=== PATIENT | female | born 1950 | race Caucasian/White ===

== ENCOUNTER → 2016-07-22 | Outpatient (CLI) | payer OTHER ==
[2016-07-22 13:29] LABS: Basophils # (auto) 0.1 uL; Basophils % (auto) 0.7 % (0.0-2.0); Eosinophils # (auto) 0.2 uL; Eosinophils % (auto) 2.7 % (0.0-7.0); Hematocrit 42.6 % (36.0-46.0); Hemoglobin 13.6 g/dL (12.2-16.2); Lymphocytes # (auto) 1.7 uL; Lymphocytes % (auto) 21.9 % (10.0-50.0); Mean Corpuscular Hemoglobin 32.2 pg (28.0-32.0); Mean Corpuscular Volume 100.6 fL (80.0-100.0); Mean Platelet Volume 8.1 fL (7.4-10.4); Monocytes # (auto) 0.5 uL; Monocytes % (auto) 6.9 % (0.0-12.0); Neutrophils # (auto) 5.2 uL; Neutrophils % (auto) 67.8 % (37.0-80.0); Platelet Count (auto) 272 10^3/uL (140-450); White Blood Cell 7.7 10^3/uL (4.4-10.8)
[2016-07-22 13:36] LABS: Urine Bilirubin Negative (Negative); Urine Blood Negative /uL (Negative); Urine Color Yellow (Yellow); Urine Glucose Normal (Normal); Urine Ketone Negative (Negative); Urine Nitrite Negative (Negative); Urine RBC 1 /hpf (0 - 4); Urine Squamous Epithelial Cell FEW /hpf (<5); Urine Urobilinogen Normal (Negative)
[2016-07-22 13:42] LABS: Albumin 4.2 g/dL (3.4-5.0); BUN/Creatinine Ratio 12.5; Bilirubin, Total 0.5 mg/dL (0.2-1.0); Calcium 9.3 mg/dL (8.5-10.1); Potassium 4.5 mmol/L (3.5-5.1); Total Protein 8.1 g/dL (6.4-8.2)
== END | disposition home or self-care (01) ==
LOC: LAB 12:23
PROVIDERS: ATTEND Family Medicine
DX: M85.80 Other specified disorders of bone density and structure, unspecified site (principal); J44.9 Chronic obstructive pulmonary disease, unspecified; E03.9 Hypothyroidism, unspecified; F33.1 Major depressive disorder, recurrent, moderate; K21.9 Gastro-esophageal reflux disease without esophagitis
CPT/HCPCS: 36415; 80053; 80061; 81001; 82306; 82607; 83036; 84443; 85025

== ENCOUNTER → 2016-07-22 | Outpatient (CLI) | payer OTHER | END | disposition home or self-care (01) | LOC: RT 11:59 | PROVIDERS: ATTEND Family Medicine | DX: J44.9 Chronic obstructive pulmonary disease, unspecified (principal) | CPT/HCPCS: 36600; 82805 ==

== ENCOUNTER → 2016-12-21 | Outpatient (CLI) | payer OTHER ==
[2016-12-21 12:16] LABS: Basophils # (auto) 0 uL; Basophils % (auto) 0.7 % (0.0-2.0); Eosinophils # (auto) 0.1 uL; Hematocrit 37.6 % (36.0-46.0); Hemoglobin 12.6 g/dL (12.2-16.2); Lymphocytes # (auto) 1.1 uL; Lymphocytes % (auto) 26.1 % (10.0-50.0); Mean Corpuscular Hemoglobin 33.7 pg (28.0-32.0); Mean Corpuscular Hgb Conc. 33.4 g/dL (32.0-36.0); Mean Corpuscular Volume 100.7 fL (80.0-100.0); Mean Platelet Volume 8.2 fL (7.4-10.4); Monocytes # (auto) 0.4 uL; Monocytes % (auto) 8.4 % (0.0-12.0); Neutrophils # (auto) 2.7 uL; Neutrophils % (auto) 62.8 % (37.0-80.0); Platelet Count (auto) 288 10^3/uL (140-450); Red Cell Distribution Width 12.7 % (11.6-16.0); White Blood Cell 4.4 10^3/uL (4.4-10.8)
== END | disposition home or self-care (01) ==
LOC: LAB 11:05
PROVIDERS: ATTEND Family Medicine
DX: E03.9 Hypothyroidism, unspecified (principal); E78.9 Disorder of lipoprotein metabolism, unspecified
CPT/HCPCS: 36415; 82306; 82607; 84443; 85025

== ENCOUNTER → 2018-02-14 | Outpatient (CLI) | payer OTHER ==
[2018-02-14 09:32] LABS: Basophils # (auto) 0.1 uL; Eosinophils # (auto) 0.2 uL; Eosinophils % (auto) 3.7 % (0.0-7.0); Hematocrit 40.8 % (36.0-46.0); Hemoglobin 13.5 g/dL (12.2-16.2); Lymphocytes # (auto) 1.9 uL; Lymphocytes % (auto) 34.2 % (10.0-50.0); Mean Corpuscular Hemoglobin 33.3 pg (28.0-32.0); Mean Corpuscular Hgb Conc. 33.1 g/dL (32.0-36.0); Mean Corpuscular Volume 100.5 fL (80.0-100.0); Monocytes # (auto) 0.5 uL; Monocytes % (auto) 9.5 % (0.0-12.0); Neutrophils # (auto) 2.8 uL; Neutrophils % (auto) 51.6 % (37.0-80.0); Platelet Count (auto) 255 10^3/uL (140-450); Red Blood Cells 4.06 10^6/uL (4.0-5.20); Red Cell Distribution Width 12.5 % (11.8-14.3); White Blood Cell 5.4 10^3/uL (4.4-10.8)
[2018-02-14 09:35] LABS: Urine Bacteria FEW /hpf (None Seen); Urine Blood 1+ /uL (Negative); Urine Specific Gravity 1.011 (1.001-1.035); Urine WBC 1 /hpf (0 - 5)
[2018-02-14 10:30] LABS: BUN/Creatinine Ratio 9.2; Bilirubin, Total 0.3 mg/dL (0.2-1.0); Calcium 8.8 mg/dL (8.5-10.1); Potassium 4.2 mmol/L (3.5-5.1); Total Protein 7.4 g/dL (6.4-8.2)
== END | disposition home or self-care (01) ==
LOC: LAB 09:02
PROVIDERS: ATTEND Family Medicine
DX: E03.9 Hypothyroidism, unspecified (principal); K21.9 Gastro-esophageal reflux disease without esophagitis; E55.9 Vitamin D deficiency, unspecified; E78.4 Other hyperlipidemia; J44.9 Chronic obstructive pulmonary disease, unspecified; F33.1 Major depressive disorder, recurrent, moderate
CPT/HCPCS: 36415; 80053; 80061; 81001; 82306; 84443; 85025

== ENCOUNTER → 2018-11-01 | Outpatient (CLI) | payer OTHER ==
[2018-11-01 11:26] LABS: Urine Bacteria NONE SEEN /hpf (None Seen); Urine Blood Negative /uL (Negative); Urine Specific Gravity 1.004 (1.001-1.035); Urine WBC 1 /hpf (0 - 5)
[2018-11-01 11:28] LABS: Basophils # (auto) 0 uL; Basophils % (auto) 0.5 % (0.0-2.0); Eosinophils # (auto) 0.2 uL; Eosinophils % (auto) 3.4 % (0.0-7.0); Hematocrit 39.2 % (36.0-46.0); Hemoglobin 12.8 g/dL (12.2-16.2); Lymphocytes # (auto) 1.5 uL; Lymphocytes % (auto) 23.3 % (10.0-50.0); Mean Corpuscular Hemoglobin 33.1 pg (28.0-32.0); Mean Corpuscular Hgb Conc. 32.7 g/dL (32.0-36.0); Mean Corpuscular Volume 101.1 fL (80.0-100.0); Monocytes # (auto) 0.6 uL; Monocytes % (auto) 9.2 % (0.0-12.0); Neutrophils % (auto) 63.6 % (37.0-80.0); Nucleated Red Blood Cells % 0.1 %; Platelet Count (auto) 258 10^3/uL (140-450); Red Blood Cells 3.88 10^6/uL (4.0-5.20); Red Cell Distribution Width 12.9 % (11.8-14.3); White Blood Cell 6.2 10^3/uL (4.4-10.8)
[2018-11-01 12:17] LABS: Albumin 3.8 g/dL (3.4-5.0); BUN/Creatinine Ratio 7.6; Calcium 8.7 mg/dL (8.5-10.1); Potassium 3.8 mmol/L (3.5-5.1)
[2018-11-01 12:21] LABS: Bilirubin, Total 0.4 mg/dL (0.2-1.0); Total Protein 6.5 g/dL (6.4-8.2)
== END | disposition home or self-care (01) ==
LOC: LAB 11:06
PROVIDERS: ATTEND Family Medicine
DX: K21.9 Gastro-esophageal reflux disease without esophagitis (principal); E78.00 Pure hypercholesterolemia, unspecified; E03.9 Hypothyroidism, unspecified; E55.9 Vitamin D deficiency, unspecified; J44.9 Chronic obstructive pulmonary disease, unspecified; R79.89 Other specified abnormal findings of blood chemistry
CPT/HCPCS: 36415; 80053; 80061; 81001; 82306; 84443; 85025

== ENCOUNTER → 2019-01-25 | Outpatient (CLI) | payer OTHER | END | disposition home or self-care (01) | LOC: LAB 11:46 | PROVIDERS: ATTEND Family Medicine | DX: R09.02 Hypoxemia (principal) | CPT/HCPCS: 36415; 82565; 84520 ==

== ENCOUNTER → 2019-02-02 | Outpatient (CLI) | payer OTHER ==
[~2019-02-02] MED LIST: ALBUTEROL SULF 2.5 MG/0.5ML(0.5%) NEB SOLN ONE
== END | disposition home or self-care (01) ==
LOC: RT 09:07 → EDSTATUS 13:34
PROVIDERS: ATTEND Family Medicine
DX: R09.02 Hypoxemia (principal)
CPT/HCPCS: 36600; 82805; 94060; 94618; J7611

== ENCOUNTER → 2020-08-23 | Outpatient (CLI) | payer OTHER ==
[2020-08-23 10:52] LABS: Basophils # (auto) 0 10 ^3/uL (0-0.2); Basophils % (auto) 0.6 % (0.0-2.0); Eosinophils # (auto) 0.3 10 ^3/uL (0-0.8); Eosinophils % (auto) 6.3 % (0.0-7.0); Hematocrit 36.4 % (36.0-46.0); Hemoglobin 12.1 g/dL (12.2-16.2); Lymphocytes # (auto) 1.3 10 ^3/uL (0.4-5.4); Lymphocytes % (auto) 23.4 % (10.0-50.0); Mean Corpuscular Hemoglobin 33.1 pg (28.0-32.0); Mean Corpuscular Hgb Conc. 33.4 g/dL (32.0-36.0); Mean Corpuscular Volume 99.3 fL (80.0-100.0); Monocytes # (auto) 0.6 10 ^3/uL (0-1.3); Monocytes % (auto) 10.3 % (0.0-12.0); Neutrophils # (auto) 3.3 10 ^3/uL (1.6-8.6); Neutrophils % (auto) 59.4 % (37.0-80.0); Platelet Count (auto) 259 10^3/uL (140-450); Red Blood Cells 3.66 10^6/uL (4.0-5.20); Red Cell Distribution Width 12.8 % (11.8-14.3); White Blood Cell 5.5 10^3/uL (4.4-10.8)
[2020-08-23 11:04] LABS: Albumin 3.6 g/dL (3.4-5.0); Calcium 8.4 mg/dL (8.5-10.1); Potassium 3.9 mmol/L (3.5-5.1)
[2020-08-23 11:09] LABS: BUN/Creatinine Ratio 12.7; Bilirubin, Total 0.3 mg/dL (0.2-1.0); Total Protein 7.2 g/dL (6.4-8.2)
== END | disposition home or self-care (01) ==
LOC: LAB 10:23
PROVIDERS: ATTEND Family Medicine
DX: I10 Essential (primary) hypertension (principal); E78.49 Other hyperlipidemia; J44.9 Chronic obstructive pulmonary disease, unspecified; E03.9 Hypothyroidism, unspecified
CPT/HCPCS: 36415; 80053; 80061; 84443; 85025

== ENCOUNTER → 2020-08-30 | Outpatient (CLI) | payer OTHER ==
[2020-08-30 11:04] LABS: Urine Bacteria NONE SEEN /hpf (None Seen); Urine Blood TRACE /uL (Negative); Urine Mucus FEW (None Seen); Urine Specific Gravity 1.013 (1.001-1.035); Urine WBC 142 /hpf (0 - 5)
== END | disposition home or self-care (01) ==
LOC: LAB 10:54
PROVIDERS: ATTEND Family Medicine
DX: E78.49 Other hyperlipidemia (principal); I10 Essential (primary) hypertension; J44.9 Chronic obstructive pulmonary disease, unspecified; E03.9 Hypothyroidism, unspecified
CPT/HCPCS: 81001

== ENCOUNTER 2020-10-29 04:08 | Inpatient (IN) | payer OTHER ==
[~2020-10-29] VITALS: Ht 172.7 cm; Wt 53.2 kg
[2020-10-29] VITALS (7 sets, daily range): BP systolic 92–113; BP diastolic 49–76
[2020-10-29] MEDS ORDERED: SODIUM CHLORIDE 0.9% 1,000 ML IV ONE ×2 (04:45→09:45)
[2020-10-29] MEDS ORDERED: FAMOTIDINE (10MG/ML) 2ML VL IV ONE (06:00)
[2020-10-29] MEDS ORDERED: SUCRALFATE 1 GM/10 ML ORAL SUSP PO ONE (06:00)
[2020-10-29] MEDS ORDERED: LIDOCAINE VISCOUS 2% 15ML UD PO ONE (06:00)
[2020-10-29] MEDS ORDERED: ALBUTEROL SULF 2.5 MG/0.5ML(0.5%) NEB SOLN NEB ONE (08:00)
[2020-10-29 08:23] LABS: Basophils # (auto) 0 10 ^3/uL (0-0.2); Basophils % (auto) 0.6 % (0.0-2.0); Eosinophils # (auto) 0.2 10 ^3/uL (0-0.8); Hemoglobin 7.3 g/dL (12.2-16.2); Platelet Count (auto) 156 10^3/uL (140-450); Red Cell Distribution Width 12.7 % (11.8-14.3); White Blood Cell 5.4 10^3/uL (4.4-10.8)
[2020-10-29 08:25] LABS: Eosinophils % (auto) 3.5 % (0.0-7.0); Hematocrit 21.2 % (36.0-46.0); Lymphocytes # (auto) 0.9 10 ^3/uL (0.4-5.4); Mean Corpuscular Hemoglobin 34.9 pg (28.0-32.0); Mean Corpuscular Hgb Conc. 34.6 g/dL (32.0-36.0); Mean Corpuscular Volume 100.9 fL (80.0-100.0); Monocytes # (auto) 0.5 10 ^3/uL (0-1.3); Monocytes % (auto) 10.1 % (0.0-12.0); Neutrophils # (auto) 3.7 10 ^3/uL (1.6-8.6); Neutrophils % (auto) 68.8 % (37.0-80.0)
[2020-10-29 08:43] LABS: Albumin 2.7 g/dL (3.4-5.0); Calcium 7.2 mg/dL (8.5-10.1); Magnesium 2.4 mg/dL (1.6-2.6); Potassium 4.7 mmol/L (3.5-5.1)
[2020-10-29 08:47] LABS: Bilirubin, Total 0.4 mg/dL (0.2-1.0); Total Protein 4.8 g/dL (6.4-8.2)
[2020-10-29 09:14] LABS: Urine WBC None Seen /hpf (0 - 5)
[2020-10-29] MEDS ORDERED: MORPHINE SULF INJ 2 MG/ML SYRINGE 1ML IV PRN (09:45)
[2020-10-29] MEDS ORDERED: NITROGLYCERIN 0.4 MG SL TAB SL PRN (09:45)
[2020-10-29] MEDS ORDERED: ONDANSETRON HCL 4 MG/2 ML VIAL IV PRN (09:45)
[2020-10-29 09:49] LABS: Urine Bacteria NONE SEEN /hpf (None Seen); Urine Blood 2+ /uL (Negative); Urine Specific Gravity 1.018 (1.001-1.035)
[2020-10-29] MEDS ORDERED: IOHEXOL 300 MG/ML 100ML BOTTLE IJ ONE (09:50)
[2020-10-29] MEDS: SODIUM CHLORIDE 0.9% 1,000 ML IV SCH ×2 (09:59→19:45)
[2020-10-29] MEDS ORDERED: PANTOPRAZOLE 40 MG/10 ML VIAL INJ IV SCH (10:00)
[2020-10-29] MEDS: NICOTINE 21MG/24 HR TOPICAL PATCH TD SCH (10:21)
[2020-10-29] MEDS: FOLIC ACID 1 MG, MULTIPLE VITAMIN 10 ML, MAGNESIUM SULF SDV 50% 8 MEQ, THIAMINE INJ 100... INJ SCH ×5 (12:56)
[2020-10-29] MEDS: OCTREOTIDE ACETATE 500 MCG in SODIUM CHL 0.9% 99 ML IV SCH ×2 (13:11→22:00)
[2020-10-29] MEDS: PANTOPRAZOLE 40mg/50ML NS AE 50 ML IV SCH ×3 (13:39→22:00)
[2020-10-29 20:08] LABS: Basophils # (auto) 0.1 10 ^3/uL (0-0.2); Basophils % (auto) 0.7 % (0.0-2.0); Eosinophils # (auto) 0.2 10 ^3/uL (0-0.8); Hematocrit 20.2 % (36.0-46.0); Lymphocytes # (auto) 1.2 10 ^3/uL (0.4-5.4); Mean Corpuscular Hgb Conc. 34.8 g/dL (32.0-36.0); Monocytes # (auto) 0.7 10 ^3/uL (0-1.3); Neutrophils # (auto) 5.6 10 ^3/uL (1.6-8.6); White Blood Cell 7.7 10^3/uL (4.4-10.8)
[2020-10-29 20:10] LABS: Eosinophils % (auto) 2.2 % (0.0-7.0); Lymphocytes % (auto) 15.2 % (10.0-50.0); Mean Corpuscular Hemoglobin 33.4 pg (28.0-32.0); Mean Corpuscular Volume 96.2 fL (80.0-100.0); Monocytes % (auto) 8.8 % (0.0-12.0); Neutrophils % (auto) 73.1 % (37.0-80.0); Platelet Count (auto) 131 10^3/uL (140-450); Red Cell Distribution Width 15.4 % (11.8-14.3)
[2020-10-30] VITALS (8 sets, daily range): BP systolic 114–148; BP diastolic 55–81
[2020-10-30] MEDS: PANTOPRAZOLE 40mg/50ML NS AE 50 ML IV SCH ×5 (03:02→23:00)
[2020-10-30] MEDS: IPRATROPIUM BROM 0.5 MG/2.5ML INH SOL NEB PRN ×2 (05:34→18:30)
[2020-10-30] MEDS: ALBUTEROL SULF 2.5 MG/0.5ML(0.5%) NEB SOLN NEB PRN ×2 (05:34→18:30)
[2020-10-30] MEDS: SODIUM CHLORIDE 0.9% 1,000 ML IV SCH ×3 (05:45→23:43)
[2020-10-30] MEDS ORDERED: SODIUM CHLORIDE LOCK 10 ML ONE (08:07)
[2020-10-30] MEDS ORDERED: diphenhdrAMINE HCL 50 MG/1 ML VL ONE (08:07)
[2020-10-30] MEDS ORDERED: LIDOCAINE VISCOUS 2% 15ML UD ONE (08:08)
[2020-10-30] MEDS: NICOTINE 21MG/24 HR TOPICAL PATCH TD SCH (09:49)
[2020-10-30] MEDS: OCTREOTIDE ACETATE 500 MCG in SODIUM CHL 0.9% 99 ML IV SCH ×2 (10:29→20:00)
[2020-10-30 10:58] LABS: Basophils # (auto) 0.1 10 ^3/uL (0-0.2); Lymphocytes # (auto) 0.8 10 ^3/uL (0.4-5.4); Mean Corpuscular Hemoglobin 31.8 pg (28.0-32.0); Monocytes # (auto) 0.5 10 ^3/uL (0-1.3); Monocytes % (auto) 8.2 % (0.0-12.0); Neutrophils % (auto) 75.1 % (37.0-80.0); Nucleated Red Blood Cells % 0.1 %
[2020-10-30 11:00] LABS: Basophils % (auto) 0.8 % (0.0-2.0); Eosinophils # (auto) 0.3 10 ^3/uL (0-0.8); Eosinophils % (auto) 3.8 % (0.0-7.0); Hemoglobin 8.2 g/dL (12.2-16.2); Lymphocytes % (auto) 12.1 % (10.0-50.0); Mean Corpuscular Hgb Conc. 34.2 g/dL (32.0-36.0); Platelet Count (auto) 127 10^3/uL (140-450); Red Blood Cells 2.58 10^6/uL (4.0-5.20); Red Cell Distribution Width 17.4 % (11.8-14.3); White Blood Cell 6.7 10^3/uL (4.4-10.8)
[2020-10-30 11:15] LABS: Albumin 2.9 g/dL (3.4-5.0); Calcium 7.4 mg/dL (8.5-10.1); Potassium 3.8 mmol/L (3.5-5.1)
[2020-10-30 11:18] LABS: BUN/Creatinine Ratio 48.6; Bilirubin, Total 0.6 mg/dL (0.2-1.0); Total Protein 5.2 g/dL (6.4-8.2)
[2020-10-30 11:24] LABS: Partial Thromboplastin Time 22.8 sec (23.0-31.2)
[2020-10-30] MEDS ORDERED: methylPREDNISolone SOD SUCC 40 MG/ML VL IV SCH (11:30)
[2020-10-30 11:53] LABS: Amylase 27 U/L (25-115); Lipase 69 U/L (73-393)
[2020-10-30] MEDS: fentaNYL CITRATE 100 MCG/2 ML VL ONE ×3 (12:27→12:33)
[2020-10-30] MEDS: MIDAZOLAM HCL 5 MG/ML-1ML VIAL ONE ×2 (12:27→12:30)
[2020-10-30] MEDS: FOLIC ACID 1 MG, MULTIPLE VITAMIN 10 ML, MAGNESIUM SULF SDV 50% 8 MEQ, THIAMINE INJ 100... INJ SCH ×5 (14:02)
[2020-10-30 15:28] LABS: Folate (Folic Acid) > 24.00 ng/mL (5.38-24)
[2020-10-30] MEDS: SUCRALFATE 1 GM/10 ML ORAL SUSP PO SCH ×2 (17:20→21:58)
[2020-10-30 18:30] LABS: Hematocrit 23.4 % (36.0-46.0); Hemoglobin 8.1 g/dL (12.2-16.2)
[2020-10-30] MEDS: BUDESONIDE (INHALATION) 0.5 MG/2 ML NEB NEB SCH (18:30)
[2020-10-30] MEDS: LORazepam 2MG/ML-1ML VIAL IV PRN (21:48)
[2020-10-30] MEDS: PANTOPRAZOLE 40 MG/10 ML VIAL INJ IV SCH (21:59)
[2020-10-31] MEDS: OCTREOTIDE ACETATE 500 MCG in SODIUM CHL 0.9% 99 ML IV SCH (04:00)
[2020-10-31] MEDS: PANTOPRAZOLE 40mg/50ML NS AE 50 ML IV SCH ×2 (04:38→09:14)
[2020-10-31 04:39] VITALS: BP 129/67
[2020-10-31 06:13] LABS: Basophils # (auto) 0 10 ^3/uL (0-0.2); Basophils % (auto) 0.3 % (0.0-2.0); Eosinophils # (auto) 0.1 10 ^3/uL (0-0.8); Eosinophils % (auto) 0.8 % (0.0-7.0); Hematocrit 21.7 % (36.0-46.0); Hemoglobin 7.4 g/dL (12.2-16.2); Lymphocytes % (auto) 12.5 % (10.0-50.0); Mean Corpuscular Hemoglobin 32.1 pg (28.0-32.0); Mean Corpuscular Hgb Conc. 34.1 g/dL (32.0-36.0); Mean Corpuscular Volume 94.3 fL (80.0-100.0); Monocytes # (auto) 0.9 10 ^3/uL (0-1.3); Monocytes % (auto) 11.2 % (0.0-12.0); Neutrophils # (auto) 6.3 10 ^3/uL (1.6-8.6); Neutrophils % (auto) 75.2 % (37.0-80.0); Platelet Count (auto) 125 10^3/uL (140-450); Red Cell Distribution Width 17.6 % (11.8-14.3); White Blood Cell 8.4 10^3/uL (4.4-10.8)
[2020-10-31 06:33] LABS: BUN/Creatinine Ratio 18.4; Calcium 7.2 mg/dL (8.5-10.1); Magnesium 2.5 mg/dL (1.6-2.6); Phosphorus 2.2 mg/dL (2.5-4.90); Potassium 3.7 mmol/L (3.5-5.1)
[2020-10-31] MEDS: SUCRALFATE 1 GM/10 ML ORAL SUSP PO SCH ×4 (06:47→21:34)
[2020-10-31 09:00] VITALS: BP 117/55
[2020-10-31] MEDS: PANTOPRAZOLE 40 MG/10 ML VIAL INJ IV SCH ×2 (09:14→21:34)
[2020-10-31] MEDS: NICOTINE 21MG/24 HR TOPICAL PATCH TD SCH (09:14)
[2020-10-31] MEDS ORDERED: predniSONE 20 MG TAB PO SCH ×2 (10:00)
[2020-10-31] MEDS ORDERED: POTASSIUM PHOSPHATE 22 MEQ in SODIUM CHL 0.9% 100 ML IV ONE (11:45)
[2020-10-31] MEDS: FOLIC ACID 1 MG, MULTIPLE VITAMIN 10 ML, MAGNESIUM SULF SDV 50% 8 MEQ, THIAMINE INJ 100... INJ SCH ×5 (12:22)
[2020-10-31] MEDS: SODIUM CHLORIDE 0.9% 1,000 ML IV SCH ×2 (12:22→20:34)
[2020-10-31 13:00] VITALS: BP 110/64
[2020-10-31 17:00] VITALS: BP 107/60
[2020-10-31] MEDS: BUDESONIDE (INHALATION) 0.5 MG/2 ML NEB NEB SCH (17:55)
[2020-10-31] MEDS ORDERED: PRE1T PO (18:36)
[2020-10-31] MEDS ORDERED: PAR20T PO (18:36)
[2020-10-31] MEDS ORDERED: HYDR-4072 PO (18:36)
[2020-10-31] MEDS ORDERED: ALBU108A14 IN (18:36)
[2020-10-31] MEDS ORDERED: ATEN-60 PO (18:36)
[2020-10-31] MEDS ORDERED: SIMV-8 PO (18:36)
[2020-10-31] MEDS: MORPHINE SULF INJ 2 MG/ML SYRINGE 1ML IV PRN (21:00)
[2020-10-31] MEDS: PANTOPRAZOLE 40 MG TAB PO SCH (21:34)
[2020-10-31 22:00] VITALS: BP 125/69
[2020-11-01] VITALS (7 sets, daily range): BP systolic 134–153; BP diastolic 58–87
[2020-11-01] MEDS: SUCRALFATE 1 GM/10 ML ORAL SUSP PO SCH ×4 (06:49→22:08)
[2020-11-01 06:59] LABS: Hematocrit 19.6 % (36.0-46.0)
[2020-11-01 07:11] LABS: Hemoglobin 6.7 g/dL (12.2-16.2)
[2020-11-01] MEDS: SODIUM CHLORIDE 0.9% 1,000 ML IV SCH ×2 (07:58→16:24)
[2020-11-01] MEDS: ALBUTEROL SULF 2.5 MG/0.5ML(0.5%) NEB SOLN NEB PRN (10:26)
[2020-11-01] MEDS: BUDESONIDE (INHALATION) 0.5 MG/2 ML NEB NEB SCH ×2 (10:27→21:47)
[2020-11-01] MEDS: IPRATROPIUM BROM 0.5 MG/2.5ML INH SOL NEB PRN (10:27)
[2020-11-01] MEDS: PANTOPRAZOLE 40 MG TAB PO SCH ×2 (10:38→22:08)
[2020-11-01] MEDS: PANTOPRAZOLE 40 MG/10 ML VIAL INJ IV SCH ×2 (10:39→22:08)
[2020-11-01] MEDS: NICOTINE 21MG/24 HR TOPICAL PATCH TD SCH (10:40)
[2020-11-01] MEDS: ACETAMINOPHEN 325 MG TAB PO PRN (15:12)
[2020-11-01] MEDS: FOLIC ACID 1 MG, MULTIPLE VITAMIN 10 ML, MAGNESIUM SULF SDV 50% 8 MEQ, THIAMINE INJ 100... INJ SCH ×5 (20:00)
[2020-11-01] MEDS: MORPHINE SULF INJ 2 MG/ML SYRINGE 1ML IV PRN (22:09)
[2020-11-01 23:31] LABS: Hematocrit 28.9 % (36.0-46.0); Hemoglobin 10.1 g/dL (12.2-16.2)
[2020-11-02 04:41] VITALS: BP 123/65
[2020-11-02] MEDS: BUDESONIDE (INHALATION) 0.5 MG/2 ML NEB NEB SCH ×2 (05:59→19:32)
[2020-11-02] MEDS: ALBUTEROL SULF 2.5 MG/0.5ML(0.5%) NEB SOLN NEB PRN ×2 (05:59→19:32)
[2020-11-02] MEDS: IPRATROPIUM BROM 0.5 MG/2.5ML INH SOL NEB PRN ×2 (05:59→19:32)
[2020-11-02 06:15] LABS: Basophils # (auto) 0 10 ^3/uL (0-0.2); Basophils % (auto) 0.4 % (0.0-2.0); Eosinophils # (auto) 0.5 10 ^3/uL (0-0.8); Eosinophils % (auto) 7.1 % (0.0-7.0); Lymphocytes % (auto) 15.5 % (10.0-50.0); Mean Corpuscular Hemoglobin 31.7 pg (28.0-32.0); Mean Corpuscular Hgb Conc. 34.5 g/dL (32.0-36.0); Mean Corpuscular Volume 91.9 fL (80.0-100.0); Monocytes # (auto) 0.8 10 ^3/uL (0-1.3); Monocytes % (auto) 12.4 % (0.0-12.0); Neutrophils # (auto) 4.4 10 ^3/uL (1.6-8.6); Neutrophils % (auto) 64.6 % (37.0-80.0); Platelet Count (auto) 150 10^3/uL (140-450); Red Blood Cells 3.15 10^6/uL (4.0-5.20); Red Cell Distribution Width 17.6 % (11.8-14.3); White Blood Cell 6.7 10^3/uL (4.4-10.8)
[2020-11-02] MEDS: SUCRALFATE 1 GM/10 ML ORAL SUSP PO SCH ×4 (06:31→22:00)
[2020-11-02 06:37] LABS: BUN/Creatinine Ratio 4.5; Calcium 7.4 mg/dL (8.5-10.1)
[2020-11-02 08:00] VITALS: BP 134/68
[2020-11-02 09:00] VITALS: BP 134/68
[2020-11-02] MEDS: PANTOPRAZOLE 40 MG TAB PO SCH (10:00)
[2020-11-02] MEDS: PANTOPRAZOLE 40 MG/10 ML VIAL INJ IV SCH ×2 (10:01→22:00)
[2020-11-02] MEDS: NICOTINE 21MG/24 HR TOPICAL PATCH TD SCH (10:02)
[2020-11-02 13:00] VITALS: BP 137/71
[2020-11-02] MEDS ORDERED: POTASSIUM CHL 20 Meq TABLET PO ONE (13:00)
[2020-11-02] MEDS: FOLIC ACID 1 MG, MULTIPLE VITAMIN 10 ML, MAGNESIUM SULF SDV 50% 8 MEQ, THIAMINE INJ 100... INJ SCH ×5 (13:03)
[2020-11-02] MEDS: MORPHINE SULF INJ 2 MG/ML SYRINGE 1ML IV PRN ×2 (15:58→20:30)
[2020-11-02 17:00] VITALS: BP 131/67
[2020-11-02] MEDS: ACETAMINOPHEN 325 MG TAB PO PRN (18:54)
[2020-11-02 22:28] VITALS: BP 130/82
[2020-11-02] MEDS: LORazepam 2MG/ML-1ML VIAL IV PRN (23:08)
[2020-11-03 05:18] VITALS: BP 128/72
[2020-11-03 06:53] LABS: Basophils # (auto) 0 10 ^3/uL (0-0.2); Basophils % (auto) 0.5 % (0.0-2.0); Eosinophils # (auto) 0.4 10 ^3/uL (0-0.8); Hematocrit 29.5 % (36.0-46.0); Hemoglobin 10.1 g/dL (12.2-16.2); Lymphocytes # (auto) 0.7 10 ^3/uL (0.4-5.4); Lymphocytes % (auto) 14.6 % (10.0-50.0); Mean Corpuscular Hemoglobin 31.7 pg (28.0-32.0); Mean Corpuscular Hgb Conc. 34.1 g/dL (32.0-36.0); Monocytes # (auto) 0.8 10 ^3/uL (0-1.3); Monocytes % (auto) 16.4 % (0.0-12.0); Neutrophils # (auto) 3.1 10 ^3/uL (1.6-8.6); Neutrophils % (auto) 61.5 % (37.0-80.0); Platelet Count (auto) 174 10^3/uL (140-450); Red Blood Cells 3.17 10^6/uL (4.0-5.20); White Blood Cell 5.1 10^3/uL (4.4-10.8)
[2020-11-03] MEDS: SUCRALFATE 1 GM/10 ML ORAL SUSP PO SCH ×2 (07:03→11:47)
[2020-11-03 07:04] LABS: Calcium 7.7 mg/dL (8.5-10.1); Magnesium 2.4 mg/dL (1.6-2.6); Potassium 3.7 mmol/L (3.5-5.1)
[2020-11-03 07:06] LABS: BUN/Creatinine Ratio 7.5
[2020-11-03 07:58] VITALS: BP 150/81
[2020-11-03 08:00] VITALS: BP 150/81
[2020-11-03] MEDS: PANTOPRAZOLE 40 MG/10 ML VIAL INJ IV SCH (09:44)
[2020-11-03] MEDS: NICOTINE 21MG/24 HR TOPICAL PATCH TD SCH (09:45)
[2020-11-03] MEDS: ACETAMINOPHEN 325 MG TAB PO PRN (09:45)
[2020-11-03] MEDS: BUDESONIDE (INHALATION) 0.5 MG/2 ML NEB NEB SCH (09:59)
[2020-11-03 12:00] VITALS: BP 140/74
[2020-11-03] MEDS: FOLIC ACID 1 MG, MULTIPLE VITAMIN 10 ML, MAGNESIUM SULF SDV 50% 8 MEQ, THIAMINE INJ 100... INJ SCH ×5 (12:29)
[2020-11-03 12:33] VITALS: BP 140/74
== END 2020-11-03 15:05 | disposition home or self-care (01) | DRG 380 ==
LOC: EDBD 04:08 → ER 04:12 → DOU IN ADS 09:40 → TELE-CENTR 16:21
PROVIDERS: ADMIT Nurse Practitioner Acute Care; ATTEND Internal Medicine
PROC: 30233N1 Transfusion of Nonautologous Red Blood Cells into Peripheral Vein, Percutaneous Approach (ICD-10-PCS; 2020-10-29)
PROC: 0DB68ZX Excision of Stomach, Via Natural or Artificial Opening Endoscopic, Diagnostic (ICD-10-PCS; 2020-10-30)
PROC: 0DB98ZX Excision of Duodenum, Via Natural or Artificial Opening Endoscopic, Diagnostic (ICD-10-PCS; principal; 2020-10-30 12:27)
DX: K22.11 Ulcer of esophagus with bleeding (principal); R57.8 Other shock; J96.21 Acute and chronic respiratory failure with hypoxia; K85.90 Acute pancreatitis without necrosis or infection, unspecified; Z68.1 Body mass index [BMI] 19.9 or less, adult; D62 Acute posthemorrhagic anemia; E44.0 Moderate protein-calorie malnutrition; K25.4 Chronic or unspecified gastric ulcer with hemorrhage; K29.91 Gastroduodenitis, unspecified, with bleeding; I10 Essential (primary) hypertension; D53.9 Nutritional anemia, unspecified; K83.8 Other specified diseases of biliary tract; F17.290 Nicotine dependence, other tobacco product, uncomplicated; K44.9 Diaphragmatic hernia without obstruction or gangrene; J43.9 Emphysema, unspecified; S50.01XA Contusion of right elbow, initial encounter; Z20.822 Contact with and (suspected) exposure to COVID-19; X58.XXXA Exposure to other specified factors, initial encounter; Y93.89 Activity, other specified; Z82.49 Family history of ischemic heart disease and other diseases of the circulatory system; Y92.89 Other specified places as the place of occurrence of the external cause; Z98.51 Tubal ligation status; Y99.8 Other external cause status
CPT/HCPCS: 36415; 71045; 71250; 73200; 74177; 78278; 80048; 80053; 81001; 82150; 82607; 82746; 83690; 83735; 84100; 85014; 85018; 85025; 85610; 85730; 86850; 86900; 86901; 86920; 87426; 93005; 94640; 96361; 96374; A9560; C9113; G0378; J1642; J2250; J3490

== ENCOUNTER → 2021-01-07 | Outpatient (CLI) | payer OTHER ==
[~2021-01-07] MED LIST changes: +ALBU108A14 IN; -ALBUTEROL SULF 2.5 MG/0.5ML(0.5%) NEB SOLN ONE; +ATEN-60 PO; +HYDR-4072 PO; +PAR20T PO; +PRE1T PO; +SIMV-8 PO
[2021-01-07 15:12] LABS: Basophils # (auto) 0 10 ^3/uL (0-0.2); Basophils % (auto) 0.6 % (0.0-2.0); Eosinophils # (auto) 0.2 10 ^3/uL (0-0.8); Eosinophils % (auto) 5.2 % (0.0-7.0); Hematocrit 34.8 % (36.0-46.0); Hemoglobin 12.1 g/dL (12.2-16.2); Lymphocytes # (auto) 1.2 10 ^3/uL (0.4-5.4); Lymphocytes % (auto) 28.6 % (10.0-50.0); Mean Corpuscular Hemoglobin 32.3 pg (28.0-32.0); Mean Corpuscular Hgb Conc. 34.7 g/dL (32.0-36.0); Mean Corpuscular Volume 93.3 fL (80.0-100.0); Monocytes # (auto) 0.4 10 ^3/uL (0-1.3); Monocytes % (auto) 10.9 % (0.0-12.0); Neutrophils # (auto) 2.2 10 ^3/uL (1.6-8.6); Neutrophils % (auto) 54.7 % (37.0-80.0); Platelet Count (auto) 164 10^3/uL (140-450); Red Blood Cells 3.73 10^6/uL (4.0-5.20); Red Cell Distribution Width 14.2 % (11.8-14.3); White Blood Cell 4.1 10^3/uL (4.4-10.8)
== END | disposition home or self-care (01) ==
LOC: LAB 14:53
PROVIDERS: ATTEND Family Medicine
DX: D50.0 Iron deficiency anemia secondary to blood loss (chronic) (principal); K29.81 Duodenitis with bleeding
CPT/HCPCS: 36415; 85025; 85049

== ENCOUNTER → 2021-01-16 | Outpatient (CLI) | payer OTHER | END | disposition home or self-care (01) | LOC: LAB 09:43 | PROVIDERS: ATTEND Internal Medicine Pulmonary Disease | DX: Z01.812 Encounter for preprocedural laboratory examination (principal); Z20.822 Contact with and (suspected) exposure to COVID-19 | CPT/HCPCS: 36415; 87426 ==

== ENCOUNTER → 2021-01-17 | Outpatient (CLI) | payer OTHER ==
[~2021-01-17] MED LIST changes: +ASCO500T11 GT; +BUDE2SUS3 IN; +CHOL20007 PO; +FLUT500M2 IN; +IPRIH IN; +LEVO75TA6 PO; +MAGN400T40 PO; +PANT1INJ3 PO; +TIOTCAP IN
== END | disposition home or self-care (01) ==
LOC: PF 08:48
PROVIDERS: ATTEND Internal Medicine Pulmonary Disease
DX: J98.8 Other specified respiratory disorders (principal); J44.9 Chronic obstructive pulmonary disease, unspecified; J98.4 Other disorders of lung
CPT/HCPCS: 94060; 94618; 94727; 94729

== ENCOUNTER 2021-01-24 12:57 | Day surgery (SDC) | payer OTHER ==
[2021-01-21 10:24] LABS: Urine WBC None Seen /hpf (0 - 5)
[2021-01-21 10:31] LABS: Basophils # (auto) 0.1 10 ^3/uL (0-0.2); Basophils % (auto) 1.5 % (0.0-2.0); Eosinophils # (auto) 0.2 10 ^3/uL (0-0.8); Eosinophils % (auto) 4.7 % (0.0-7.0); Hematocrit 38.1 % (36.0-46.0); Hemoglobin 12.4 g/dL (12.2-16.2); Lymphocytes # (auto) 1.2 10 ^3/uL (0.4-5.4); Lymphocytes % (auto) 24.3 % (10.0-50.0); Mean Corpuscular Hemoglobin 30.8 pg (28.0-32.0); Mean Corpuscular Hgb Conc. 32.6 g/dL (32.0-36.0); Mean Corpuscular Volume 94.6 fL (80.0-100.0); Monocytes # (auto) 0.5 10 ^3/uL (0-1.3); Monocytes % (auto) 9.1 % (0.0-12.0); Neutrophils % (auto) 60.4 % (37.0-80.0); Red Blood Cells 4.03 10^6/uL (4.0-5.20); Red Cell Distribution Width 14.1 % (11.8-14.3)
[2021-01-21 10:34] LABS: Urine Bacteria NONE SEEN /hpf (None Seen); Urine Blood Negative /uL (Negative); Urine Specific Gravity 1.006 (1.001-1.035)
[2021-01-21 11:40] LABS: Albumin 4.2 g/dL (3.4-5.0); Calcium 8.8 mg/dL (8.5-10.1); Potassium 3.9 mmol/L (3.5-5.1)
[2021-01-21 11:42] LABS: BUN/Creatinine Ratio 12.5; Bilirubin, Total 0.4 mg/dL (0.2-1.0); Total Protein 7.5 g/dL (6.4-8.2)
[~2021-01-24] VITALS: Ht 172.7 cm; Wt 47.6 kg
[~2021-01-24 12:57] MED LIST changes: -PRE1T PO
[2021-01-24] MEDS ORDERED: SODIUM CHLORIDE LOCK 10 ML ONE (14:08)
[2021-01-24] MEDS: fentaNYL CITRATE 100 MCG/2 ML VL ONE ×2 (14:13→14:16)
[2021-01-24] MEDS: diphenhdrAMINE HCL 50 MG/1 ML VL ONE ×2 (14:13→14:32)
[2021-01-24] MEDS: MIDAZOLAM HCL 5 MG/ML-1ML VIAL ONE ×2 (14:13→14:16)
[2021-01-24 15:30] VITALS: BP 137/75
== END 2021-01-24 15:40 | disposition home or self-care (01) ==
LOC: GI 12:57
PROVIDERS: ATTEND Internal Medicine Gastroenterology
DX: Z12.11 Encounter for screening for malignant neoplasm of colon (principal); K63.89 Other specified diseases of intestine; K27.9 Peptic ulcer, site unspecified, unspecified as acute or chronic, without hemorrhage or perforation; J43.9 Emphysema, unspecified; H26.8 Other specified cataract; F99 Mental disorder, not otherwise specified; F41.9 Anxiety disorder, unspecified; Z20.822 Contact with and (suspected) exposure to COVID-19; Z79.899 Other long term (current) drug therapy; Z80.9 Family history of malignant neoplasm, unspecified; Z87.891 Personal history of nicotine dependence
CPT/HCPCS: 36415; 45378; 80053; 81001; 85025; J1200; J2250; J3010; J7030; U0003; 99152; 99153

== ENCOUNTER → 2021-08-29 | Outpatient (CLI) | payer OTHER ==
[2021-08-29 10:57] LABS: Potassium 4.1 mmol/L (3.5-5.1)
[2021-08-29 11:08] LABS: Basophils # (auto) 0 10 ^3/uL (0-0.2); Basophils % (auto) 0.7 % (0.0-2.0); Eosinophils # (auto) 0.1 10 ^3/uL (0-0.8); Eosinophils % (auto) 2.3 % (0.0-7.0); Hematocrit 34.3 % (36.0-46.0); Hemoglobin 11.6 g/dL (12.2-16.2); Lymphocytes # (auto) 1.3 10 ^3/uL (0.4-5.4); Lymphocytes % (auto) 21.4 % (10.0-50.0); Mean Corpuscular Hemoglobin 33.5 pg (28.0-32.0); Mean Corpuscular Hgb Conc. 33.8 g/dL (32.0-36.0); Mean Corpuscular Volume 99.1 fL (80.0-100.0); Monocytes # (auto) 0.8 10 ^3/uL (0-1.3); Neutrophils # (auto) 3.8 10 ^3/uL (1.6-8.6); Neutrophils % (auto) 62.6 % (37.0-80.0); Nucleated Red Blood Cells % 0.2 %; Red Blood Cells 3.46 10^6/uL (4.0-5.20); Red Cell Distribution Width 12.6 % (11.8-14.3); White Blood Cell 6.1 10^3/uL (4.4-10.8)
[2021-08-29 11:44] LABS: Albumin 3.4 g/dL (3.4-5.0); BUN/Creatinine Ratio 17.4; Bilirubin, Total 0.3 mg/dL (0.2-1.0); Calcium 9.5 mg/dL (8.5-10.1); Total Protein 7.4 g/dL (6.4-8.2)
== END | disposition home or self-care (01) ==
LOC: LAB 09:49
PROVIDERS: ATTEND Student in an Organized Health Care Education/Training Program
DX: Z00.01 Encounter for general adult medical examination with abnormal findings (principal); I10 Essential (primary) hypertension; E78.49 Other hyperlipidemia; J44.9 Chronic obstructive pulmonary disease, unspecified; E03.9 Hypothyroidism, unspecified
CPT/HCPCS: 36415; 80053; 80061; 83036; 84443; 85025

== ENCOUNTER → 2021-09-03 | Outpatient (CLI) | payer OTHER | END | disposition home or self-care (01) | LOC: LAB 11:09 | PROVIDERS: ATTEND Student in an Organized Health Care Education/Training Program | DX: Z00.01 Encounter for general adult medical examination with abnormal findings (principal); J44.9 Chronic obstructive pulmonary disease, unspecified; I10 Essential (primary) hypertension; E78.49 Other hyperlipidemia; E03.9 Hypothyroidism, unspecified | CPT/HCPCS: 82274 ==

== ENCOUNTER → 2021-11-05 | Outpatient (CLI) | payer OTHER, MEDICARE | END | disposition home or self-care (01) | LOC: LAB 13:23 | PROVIDERS: ATTEND Student in an Organized Health Care Education/Training Program | DX: E03.9 Hypothyroidism, unspecified (principal) | CPT/HCPCS: 36415; 84439; 84443 ==

== ENCOUNTER → 2022-07-31 | Outpatient (CLI) | payer OTHER ==
[2022-07-31 09:28] LABS: Basophils # (auto) 0 10 ^3/uL (0-0.2); Basophils % (auto) 0.9 % (0.0-2.0); Eosinophils # (auto) 0.4 10 ^3/uL (0-0.8); Eosinophils % (auto) 7.9 % (0.0-7.0); Hematocrit 37.8 % (36.0-46.0); Hemoglobin 12.5 g/dL (12.2-16.2); Lymphocytes # (auto) 1.2 10 ^3/uL (0.4-5.4); Mean Corpuscular Hemoglobin 32.7 pg (28.0-32.0); Mean Corpuscular Hgb Conc. 33.1 g/dL (32.0-36.0); Mean Corpuscular Volume 98.6 fL (80.0-100.0); Monocytes # (auto) 0.5 10 ^3/uL (0-1.3); Monocytes % (auto) 10.2 % (0.0-12.0); Neutrophils # (auto) 2.8 10 ^3/uL (1.6-8.6); Nucleated Red Blood Cells % 0.1 %; Red Blood Cells 3.83 10^6/uL (4.0-5.20); Red Cell Distribution Width 12.6 % (11.8-14.3); White Blood Cell 4.9 10^3/uL (4.4-10.8)
[2022-07-31 10:51] LABS: Potassium 4.1 mmol/L (3.5-5.1)
[2022-07-31 11:07] LABS: Albumin 3.5 g/dL (3.4-5.0)
[2022-07-31 11:21] LABS: Bilirubin, Total 0.4 mg/dL (0.2-1.0); Total Protein 7.3 g/dL (6.4-8.2)
== END | disposition home or self-care (01) ==
LOC: LAB 09:09
PROVIDERS: ATTEND Student in an Organized Health Care Education/Training Program
DX: I70.0 Atherosclerosis of aorta (principal); J43.9 Emphysema, unspecified; E78.2 Mixed hyperlipidemia; K92.1 Melena
CPT/HCPCS: 36415; 80053; 80061; 82274; 85025

== ENCOUNTER → 2022-10-30 | Day surgery (SDC) | payer OTHER ==
[2022-10-27 11:36] LABS: Basophils # (auto) 0 10 ^3/uL (0-0.2); Basophils % (auto) 0.6 % (0.0-2.0); Eosinophils # (auto) 0.4 10 ^3/uL (0-0.8); Eosinophils % (auto) 6.1 % (0.0-7.0); Hematocrit 35.7 % (36.0-46.0); Hemoglobin 11.9 g/dL (12.2-16.2); Lymphocytes # (auto) 0.8 10 ^3/uL (0.4-5.4); Lymphocytes % (auto) 11.2 % (10.0-50.0); Mean Corpuscular Hemoglobin 31.9 pg (28.0-32.0); Mean Corpuscular Hgb Conc. 33.4 g/dL (32.0-36.0); Mean Corpuscular Volume 95.7 fL (80.0-100.0); Monocytes # (auto) 0.9 10 ^3/uL (0-1.3); Monocytes % (auto) 12.2 % (0.0-12.0); Neutrophils # (auto) 4.9 10 ^3/uL (1.6-8.6); Neutrophils % (auto) 69.9 % (37.0-80.0); Nucleated Red Blood Cells % 0.1 %; Red Blood Cells 3.73 10^6/uL (4.0-5.20); Red Cell Distribution Width 12.2 % (11.8-14.3)
[2022-10-27 11:57] LABS: INR 1.03 (0.9-1.15); Partial Thromboplastin Time 28.5 sec (24.6-33.4)
[2022-10-27 12:54] LABS: Albumin 3.2 g/dL (3.4-5.0); Calcium 8.9 mg/dL (8.5-10.1); Potassium 3.6 mmol/L (3.5-5.1)
[2022-10-27 12:57] LABS: BUN/Creatinine Ratio 16.1 (10.0-20.0); Bilirubin, Total 0.3 mg/dL (0.2-1.0); Total Protein 7.4 g/dL (6.4-8.2)
[~2022-10-30] VITALS: Ht 172.7 cm; Wt 52.6 kg
[~2022-10-30] MED LIST changes: -ASCO500T11 GT; -ATEN-60 PO; -BUDE2SUS3 IN; +CHOL100055 PO; -CHOL20007 PO; +FER325T PO; +FLUT1AER3 IN; -FLUT500M2 IN; +FOLITAB14 OR; -HYDR-4072 PO; +LIDOCAINE VISCOUS 2% 15ML UD ONE; -MAGN400T40 PO; +NALOXONE HCL 0.4 MG/ML VIAL ONE; +ROSU1TAB14 PO; -SIMV-8 PO; -TIOTCAP IN; +TRAM50TA2 PO
[2022-10-30] MEDS: fentaNYL CITRATE 100 MCG/2 ML VL ONE ×2 (11:42→11:47)
[2022-10-30] MEDS: MIDAZOLAM HCL 2MG/2ML 2ml VIAL (1mg/ml) ONE ×2 (11:42→11:47)
[2022-10-30] MEDS: diphenhdrAMINE HCL 50 MG/1 ML VL ONE ×2 (11:43→11:47)
[2022-10-30 12:15] VITALS: BP 119/66
== END | disposition home or self-care (01) ==
LOC: GI 10:04
PROVIDERS: ATTEND Internal Medicine Gastroenterology
DX: K21.9 Gastro-esophageal reflux disease without esophagitis (principal); K25.9 Gastric ulcer, unspecified as acute or chronic, without hemorrhage or perforation; K44.9 Diaphragmatic hernia without obstruction or gangrene; K29.50 Unspecified chronic gastritis without bleeding
CPT/HCPCS: 36415; 43239; 80053; 85025; 85610; 85730; J1200; J2250; J3010; J7030

== ENCOUNTER → 2022-11-03 | Outpatient (CLI) | payer OTHER ==
[~2022-11-03] MED LIST changes: -LIDOCAINE VISCOUS 2% 15ML UD ONE; -NALOXONE HCL 0.4 MG/ML VIAL ONE
== END | disposition home or self-care (01) ==
LOC: XYW 09:54
PROVIDERS: ATTEND Internal Medicine Pulmonary Disease
DX: I31.39 Other pericardial effusion (noninflammatory) (principal)
CPT/HCPCS: 93306

== ENCOUNTER → 2022-12-31 | Outpatient (CLI) | payer OTHER | END | disposition home or self-care (01) | LOC: LAB 15:11 | PROVIDERS: ATTEND Student in an Organized Health Care Education/Training Program | DX: E03.9 Hypothyroidism, unspecified (principal) | CPT/HCPCS: 36415; 84443 ==

== ENCOUNTER → 2023-09-10 | Outpatient (CLI) | payer OTHER ==
[2023-09-10 15:39] LABS: Basophils # (auto) 0 10 ^3/uL (0-0.2); Basophils % (auto) 0.8 % (0.0-2.0); Eosinophils # (auto) 0.3 10 ^3/uL (0-0.8); Eosinophils % (auto) 5.6 % (0.0-7.0); Hemoglobin 11.3 g/dL (12.2-16.2); Lymphocytes # (auto) 1.3 10 ^3/uL (0.4-5.4); Lymphocytes % (auto) 22.7 % (10.0-50.0); Mean Corpuscular Hemoglobin 31.6 pg (28.0-32.0); Mean Corpuscular Hgb Conc. 32.3 g/dL (32.0-36.0); Mean Corpuscular Volume 97.9 fL (80.0-100.0); Monocytes # (auto) 0.6 10 ^3/uL (0-1.3); Monocytes % (auto) 10.9 % (0.0-12.0); Neutrophils # (auto) 3.4 10 ^3/uL (1.6-8.6); Red Blood Cells 3.58 10^6/uL (4.0-5.20); Red Cell Distribution Width 12.5 % (11.8-14.3); White Blood Cell 5.6 10^3/uL (4.4-10.8)
[2023-09-10 15:57] LABS: INR 1.01 (0.9-1.15); Partial Thromboplastin Time 25.5 SEC (24.5-34.5); Prothrombin Time 10.6 sec (9.3-11.8)
[2023-09-10 16:03] LABS: Alanine Aminotransferase 13 U/L (7-40); Alkaline Phosphatase 67 U/L (46-116); Anion Gap 1 (5-15); BUN/Creatinine Ratio 17.1 (10.0-20.0); Blood Urea Nitrogen 12 mg/dL (9-23); Calcium 8.8 mg/dL (8.7-10.4); Carbon Dioxide 36 mmol/L (20-30); Chloride 104 mmol/L (98-107); Glucose 107 mg/dL (74-106); Sodium 141 mmol/L (136-145)
[2023-09-10 16:04] LABS: Bilirubin, Total 0.2 mg/dL (0.2-1.0); Total Protein 6.4 g/dL (5.7-8.2)
[2023-09-10 16:35] LABS: Aspartate Aminotransferase 22 U/L (13-40)
== END | disposition home or self-care (01) ==
LOC: LAB 15:15
PROVIDERS: ATTEND Internal Medicine Gastroenterology
DX: K29.00 Acute gastritis without bleeding (principal); K21.9 Gastro-esophageal reflux disease without esophagitis; D64.9 Anemia, unspecified
CPT/HCPCS: 36415; 80053; 82378; 85025; 85610; 85730

== ENCOUNTER 2024-03-25 08:09 | Inpatient (IN) | payer MEDICARE, OTHER ==
[2024-03-25] VITALS (7 sets, daily range): BP systolic 97–125; BP diastolic 53–68; PULSE 99–118; RESP 18–20; TEMP 98.9; O2SAT 92–99
[~2024-03-25] VITALS: Ht 172.7 cm; Wt 50.0 kg
[~2024-03-25 08:09] MED LIST changes: -ROSU1TAB14 PO; +ROSU20TA56 PO
[2024-03-25] MEDS: ALBUTEROL SULF 2.5 MG/0.5ML(0.5%) NEB SOLN HHN ONE (09:49)
[2024-03-25] MEDS: IPRATROPIUM BROM 0.5 MG/2.5ML INH SOL HHN ONE (09:49)
[2024-03-25 10:06] LABS: Chloride 103 mmol/L (98-107); Potassium 3.7 mmol/L (3.5-5.1); Sodium 139 mmol/L (136-145)
[2024-03-25 10:07] LABS: Anion Gap 9 (5-15); Carbon Dioxide 27 mmol/L (20-30)
[2024-03-25 10:08] LABS: Calcium 8.3 mg/dL (8.7-10.4)
[2024-03-25 10:10] LABS: Hematocrit 35.7 % (36.0-46.0); Hemoglobin 11.7 g/dL (12.2-16.2); Mean Corpuscular Hemoglobin 31.9 pg (28.0-32.0); Mean Corpuscular Hgb Conc. 32.8 g/dL (32.0-36.0); Mean Corpuscular Volume 97.3 fL (80.0-100.0); Platelet Count (auto) 109 10^3/uL (140-450); Red Blood Cells 3.67 10^6/uL (4.0-5.20); Red Cell Distribution Width 13.2 % (11.8-14.3); White Blood Cell 13.9 10^3/uL (4.4-10.8)
[2024-03-25 10:12] LABS: BUN/Creatinine Ratio 15.6 (10.0-20.0); Blood Urea Nitrogen 10 mg/dL (9-23); Glucose 134 mg/dL (74-106)
[2024-03-25 10:21] LABS: Basophils % (manual) 0 (0.0-2.0); Blast Cells 0; Eosinophils % (manual) 0 (0-7); Metamyelocytes % 0; Myelocytes % 0; Promyelocytes % 0; Reactive Lymphocytes 0
[2024-03-25] MEDS: DexAMETHasone INJECTION 10 MG in D5W 5% 50 ML IV ONE (10:45)
[2024-03-25 10:57] LABS: Band Neutrophils % (manual) 21; Lymphocytes % (manual) 2 (10.0-50.0); Monocytes % (manual) 1 (0-12)
[2024-03-25 10:58] LABS: Ovalocytes FEW; Platelet Estimate Decreased
[2024-03-25 11:31] LABS: Urine Blood 1+ /uL (Negative); Urine Clarity Turbid (Clear); Urine Color Yellow (Yellow); Urine Protein, UAD TRACE (Negative); Urine Specific Gravity 1.016 (1.001-1.035); Urine Urobilinogen Normal (Negative); Urine pH 5.5 (5.0-9.0)
[2024-03-25] MEDS: SODIUM CHLORIDE 0.9% 500 ML IV ONE (13:33)
[2024-03-25] MEDS ORDERED: MORPHINE SULFATE INJ 2 MG/ml SYRG IV PRN (14:00)
[2024-03-25] MEDS ORDERED: NITROGLYCERIN 0.4 MG SL TAB SL PRN (14:00)
[2024-03-25] MEDS ORDERED: ONDANSETRON HCL 4 MG/2 ML VIAL IV PRN (14:00)
[2024-03-25] MEDS: LEVALBUTEROL HCL 1.25 MG/3 ML NEB NEB SCH (14:00)
[2024-03-25] MEDS ORDERED: DOCUSATE SOD 100 MG CAP PO PRN (14:00)
[2024-03-25] MEDS: IPRATROPIUM BROM 0.5 MG/2.5ML INH SOL NEB SCH (14:00)
[2024-03-25] MEDS: LEVALBUTEROL HCL 1.25 MG/3 ML NEB NEB ONE (14:03)
[2024-03-25] MEDS: levoFLOXacin 500MG 100 ML IV ONE (14:49)
[2024-03-25] MEDS: LORazepam 2MG/ML-1ML VIAL IV PRN (14:49)
[2024-03-25] MEDS: methylPREDNISolone SOD SUCC 40 MG/ML VL IV SCH (14:49)
[2024-03-25] MEDS: traMADol HCL 50 MG TAB PO SCH (15:29)
[2024-03-25] MEDS: ENOXAPARIN SOD 40 MG/0.4 ML SYRINGE SC SCH (15:31)
[2024-03-25] MEDS: SODIUM CHLORIDE 0.9% 1,000 ML IV SCH (15:31)
[2024-03-25] MEDS: MAGNESIUM SULFATE 1GM/100ML 100 ML IV SCH ×2 (15:57→16:48)
[2024-03-25] MEDS: IOHEXOL 350 MG/ML 100ML IJ ONE (16:05)
[2024-03-25 16:07] LABS: Base Excess -2.3 mmol/L (-2.0-3.0)
[2024-03-25] MEDS: ACETAMINOPHEN IV 1000 MG/100ML (10MG/ML) IV STA (16:20)
[2024-03-25] MEDS: NOREPINEPHRINE 8 MG/250ML KIT 250 ML IV SCH (17:40)
[2024-03-25] MEDS: NOREPINEPHRINE 8 MG/250ML KIT 250 ML IV ONE (17:49)
[2024-03-25] MEDS: PARoxetine 20 MG TAB PO SCH (17:53)
[2024-03-25] MEDS: ATORVASTATIN 20 MG TAB PO SCH ×2 (17:53→22:38)
[2024-03-25] MEDS: traZODone HCL 50 MG TAB PO SCH (22:37)
[2024-03-26] VITALS (15 sets, daily range): BP systolic 100–112; BP diastolic 56–60; PULSE 77–114; RESP 14–22; O2SAT 91–99
[2024-03-26 06:40] LABS: Hematocrit 35.2 % (36.0-46.0); Mean Corpuscular Hemoglobin 32.7 pg (28.0-32.0); Mean Corpuscular Hgb Conc. 34.1 g/dL (32.0-36.0); Mean Corpuscular Volume 95.9 fL (80.0-100.0); Platelet Count (auto) 177 10^3/uL (140-450); Red Blood Cells 3.67 10^6/uL (4.0-5.20); Red Cell Distribution Width 13.7 % (11.8-14.3); White Blood Cell 20.6 10^3/uL (4.4-10.8)
[2024-03-26] MEDS: LEVOTHYROXINE SODIUM 50 MCG TAB PO SCH (06:40)
[2024-03-26 06:48] LABS: Basophils % (manual) 0 (0.0-2.0); Blast Cells 0; Eosinophils % (manual) 0 (0-7); Metamyelocytes % 0; Myelocytes % 0; Promyelocytes % 0; Reactive Lymphocytes 0
[2024-03-26 07:00] LABS: Albumin 3.4 g/dL (3.2-4.8); Alkaline Phosphatase 66 U/L (46-116); Anion Gap 3 (5-15); Aspartate Aminotransferase 16 U/L (13-40); BUN/Creatinine Ratio 15.8 (10.0-20.0); Bilirubin, Total 0.3 mg/dL (0.2-1.0); Blood Urea Nitrogen 9 mg/dL (9-23); Calcium 8.8 mg/dL (8.7-10.4); Carbon Dioxide 31 mmol/L (20-30); Chloride 103 mmol/L (98-107); Glucose 156 mg/dL (74-106); Potassium 3.7 mmol/L (3.5-5.1); Sodium 137 mmol/L (136-145); Total Protein 5.8 g/dL (5.7-8.2)
[2024-03-26 07:15] LABS: Alanine Aminotransferase < 9 U/L (7-40)
[2024-03-26 08:36] LABS: Band Neutrophils % (manual) 18; Lymphocytes % (manual) 3 (10.0-50.0); Monocytes % (manual) 2 (0-12); Ovalocytes FEW; Platelet Estimate Adequate
[2024-03-26] MEDS: FERROUS SULFATE 325mg EC TAB PO SCH (10:00)
[2024-03-26] MEDS: levoFLOXacin 500MG 100 ML IV SCH (10:00)
[2024-03-26] MEDS: PANTOPRAZOLE 40 MG/10 ML VIAL INJ IV SCH (10:17)
[2024-03-26] MEDS ORDERED: LORazepam 2MG/ML-1ML VIAL IV PRN (21:30)
[2024-03-27] VITALS (10 sets, daily range): BP systolic 132–138; BP diastolic 82; PULSE 74–111; RESP 16–20; TEMP 96.8–98.8; O2SAT 95–100
[2024-03-27 06:28] LABS: Anion Gap 4 (5-15); Carbon Dioxide 32 mmol/L (20-30); Chloride 105 mmol/L (98-107); Sodium 141 mmol/L (136-145)
[2024-03-27 06:34] LABS: BUN/Creatinine Ratio 18.8 (10.0-20.0); Blood Urea Nitrogen 9 mg/dL (9-23); Glucose 121 mg/dL (74-106)
[2024-03-27 06:38] LABS: Basophils # (auto) 0 10 ^3/uL (0-0.2); Eosinophils # (auto) 0 10 ^3/uL (0-0.8); Hematocrit 32.9 % (36.0-46.0); Hemoglobin 11.3 g/dL (12.2-16.2); Lymphocytes # (auto) 0.5 10 ^3/uL (0.4-5.4); Lymphocytes % (auto) 3.1 % (10.0-50.0); Mean Corpuscular Hemoglobin 32.5 pg (28.0-32.0); Mean Corpuscular Hgb Conc. 34.2 g/dL (32.0-36.0); Mean Corpuscular Volume 94.9 fL (80.0-100.0); Monocytes # (auto) 0.5 10 ^3/uL (0-1.3); Monocytes % (auto) 3.6 % (0.0-12.0); Neutrophils # (auto) 14.2 10 ^3/uL (1.6-8.6); Neutrophils % (auto) 93.3 % (37.0-80.0); Platelet Count (auto) 162 10^3/uL (140-450); Red Blood Cells 3.47 10^6/uL (4.0-5.20); Red Cell Distribution Width 13.4 % (11.8-14.3); White Blood Cell 15.2 10^3/uL (4.4-10.8)
[2024-03-27 06:53] LABS: Calcium 8.5 mg/dL (8.7-10.4)
[2024-03-27] MEDS ORDERED: PRED20TA2 PO (12:00)
[2024-03-27] MEDS ORDERED: FAMO20TA10 PO (12:00)
[2024-03-27] MEDS ORDERED: DOXY-286 PO (12:00)
[2024-03-27 13:02] LABS: Free T4 (Free Thyroxine) 1.15 ng/dL (0.89-1.76)
== END 2024-03-27 18:30 | disposition home or self-care (01) | DRG 871 ==
LOC: ER 08:09 → EDBD 08:09 → EDUNIT# 08:09 → OVERFLOW 13:56 → TELE 19:02 → TELE-WESTW 03-27 08:40
PROVIDERS: ADMIT Internal Medicine; ATTEND Emergency Medicine
PROC: 5A09357 Assistance with Respiratory Ventilation, Less than 24 Consecutive Hours, Continuous Positive Airway Pressure (ICD-10-PCS; principal; 2024-03-25)
PROC: 5A09357 Assistance with Respiratory Ventilation, Less than 24 Consecutive Hours, Continuous Positive Airway Pressure (ICD-10-PCS; 2024-03-26)
DX: A41.50 Gram-negative sepsis, unspecified (principal); J15.69 Pneumonia due to other Gram-negative bacteria; J96.21 Acute and chronic respiratory failure with hypoxia; J45.901 Unspecified asthma with (acute) exacerbation; J44.1 Chronic obstructive pulmonary disease with (acute) exacerbation; Z66 Do not resuscitate; D69.6 Thrombocytopenia, unspecified; F03.90 Unspecified dementia, unspecified severity, without behavioral disturbance, psychotic disturbance, mood disturbance, and anxiety; E03.9 Hypothyroidism, unspecified; I27.20 Pulmonary hypertension, unspecified; F17.210 Nicotine dependence, cigarettes, uncomplicated; E07.9 Disorder of thyroid, unspecified; G89.29 Other chronic pain; M54.9 Dorsalgia, unspecified; J43.9 Emphysema, unspecified; M54.2 Cervicalgia; Z82.49 Family history of ischemic heart disease and other diseases of the circulatory system; Z99.81 Dependence on supplemental oxygen; Z80.9 Family history of malignant neoplasm, unspecified
CPT/HCPCS: 36415; 36600; 70450; 71045; 71275; 80048; 80053; 81003; 82306; 82607; 82805; 83036; 83605; 83880; 84439; 84443; 84484; 85007; 85025; 85027; 85379; 87040; 93005; 93970; 94640; 94660; G0378; J0131; J1100; J1956; J2470; J7060

== ENCOUNTER → 2024-06-30 | Outpatient (CLI) | payer OTHER ==
[~2024-06-30] MED LIST changes: +DOXY-286 PO; +FAMO20TA10 PO; -PANT1INJ3 PO; +PRED20TA2 PO
[2024-06-30 10:23] LABS: Basophils # (auto) 0.1 10 ^3/uL (0-0.2); Eosinophils # (auto) 0.3 10 ^3/uL (0-0.8); Eosinophils % (auto) 5.9 % (0.0-7.0); Hematocrit 35.9 % (36.0-46.0); Hemoglobin 11.8 g/dL (12.2-16.2); Lymphocytes # (auto) 1.4 10 ^3/uL (0.4-5.4); Lymphocytes % (auto) 25.6 % (10.0-50.0); Mean Corpuscular Hemoglobin 31.4 pg (28.0-32.0); Mean Corpuscular Hgb Conc. 32.9 g/dL (32.0-36.0); Mean Corpuscular Volume 95.5 fL (80.0-100.0); Monocytes # (auto) 0.4 10 ^3/uL (0-1.3); Monocytes % (auto) 8.2 % (0.0-12.0); Neutrophils # (auto) 3.1 10 ^3/uL (1.6-8.6); Neutrophils % (auto) 59.3 % (37.0-80.0); Nucleated Red Blood Cells % 0.1 %; Platelet Count (auto) 221 10^3/uL (140-450); Red Blood Cells 3.76 10^6/uL (4.0-5.20); Red Cell Distribution Width 13.2 % (11.8-14.3); White Blood Cell 5.3 10^3/uL (4.4-10.8)
[2024-06-30 11:07] LABS: Albumin 3.4 g/dL (3.2-4.8); Alkaline Phosphatase 97 U/L (46-116); Anion Gap 4 (5-15); Aspartate Aminotransferase 19 U/L (13-40); Calcium 9.4 mg/dL (8.7-10.4); Chloride 103 mmol/L (98-107); Cholesterol 165 mg/dL (< 200); Glucose 101 mg/dL (74-106); LDL Cholesterol 52 mg/dL (< 100); Potassium 3.5 mmol/L (3.5-5.1); Sodium 141 mmol/L (136-145); Triglycerides 90 mg/dL (< 150)
[2024-06-30 11:18] LABS: Alanine Aminotransferase < 9 U/L (7-40); BUN/Creatinine Ratio 8.8 (10.0-20.0); Bilirubin, Total 0.2 mg/dL (0.2-1.0); Blood Urea Nitrogen < 5 mg/dL (9-23); Carbon Dioxide 34 mmol/L (20-31); HDL Cholesterol 88 mg/dL (40-59)
== END | disposition home or self-care (01) ==
LOC: LAB 09:37
PROVIDERS: ATTEND Nurse Practitioner
DX: Z12.11 Encounter for screening for malignant neoplasm of colon (principal); E78.2 Mixed hyperlipidemia; D64.9 Anemia, unspecified; J44.9 Chronic obstructive pulmonary disease, unspecified; E07.9 Disorder of thyroid, unspecified; K29.70 Gastritis, unspecified, without bleeding
CPT/HCPCS: 36415; 80053; 80061; 84443; 85025

== ENCOUNTER 2024-07-24 03:21 | Inpatient (IN) | payer OTHER ==
[~2024-07-24] VITALS: Ht 170.2 cm; Wt 45.3 kg
[2024-07-24] VITALS (8 sets, daily range): BP systolic 122–140; BP diastolic 62–86; PULSE 85–118; RESP 20–24; O2SAT 91–98
[2024-07-24] MEDS: ALBUTEROL SULF 2.5 MG/0.5ML(0.5%) NEB SOLN NEB ONE (03:59)
--- NOTE | 2024-07-24 04:33 | DVH ---
CHEST RADIOGRAPH Indication: syncope Technique: Single frontal view of the chest was obtained Comparison: XY CHEST PORTABLE on DOS: 03/25/24 FINDINGS: Lines and Tubes: None Lungs: Hyperinflated lungs. Diffuse bilateral prominent interstitial markings. Difficult to exclude right midlung consolidation due to overlapping right breast implant. Pleura: No effusion. No pneumothorax. Cardiomediastinal contours: Unremarkable Bones: No acute osseous abnormality. Chest wall: Bilateral calcified breast implants. IMPRESSION: 1. COPD and interstitial prominence which may reflect chronic lung disease. A superimposed consolidat ion in the right midlung zone is not excluded. Evaluation limited by overlapping right breast implan t.
[2024-07-24 04:45] LABS: Basophils # (auto) 0.1 10 ^3/uL (0-0.2); Basophils % (auto) 0.6 % (0.0-2.0); Eosinophils # (auto) 0 10 ^3/uL (0-0.8); Eosinophils % (auto) 0.3 % (0.0-7.0); Hematocrit 42.8 % (36.0-46.0); Hemoglobin 14.3 g/dL (12.2-16.2); Lymphocytes # (auto) 0.7 10 ^3/uL (0.4-5.4); Lymphocytes % (auto) 7.4 % (10.0-50.0); Mean Corpuscular Hemoglobin 32.7 pg (28.0-32.0); Mean Corpuscular Hgb Conc. 33.4 g/dL (32.0-36.0); Mean Corpuscular Volume 97.7 fL (80.0-100.0); Monocytes # (auto) 1.1 10 ^3/uL (0-1.3); Monocytes % (auto) 11.3 % (0.0-12.0); Neutrophils # (auto) 7.5 10 ^3/uL (1.6-8.6); Neutrophils % (auto) 80.4 % (37.0-80.0); Platelet Count (auto) 241 10^3/uL (140-450); Red Blood Cells 4.38 10^6/uL (4.0-5.20); Red Cell Distribution Width 13.8 % (11.8-14.3); White Blood Cell 9.4 10^3/uL (4.4-10.8)
[2024-07-24 05:14] LABS: Alanine Aminotransferase 23 U/L (7-40); Anion Gap 6 (5-15); BUN/Creatinine Ratio 17.1 (10.0-20.0); Bilirubin, Total 0.7 mg/dL (0.2-1.0); Blood Urea Nitrogen 13 mg/dL (9-23); Calcium 9.2 mg/dL (8.7-10.4); Glucose 89 mg/dL (74-106); Magnesium 2.3 mg/dL (1.6-2.6); Potassium 3.5 mmol/L (3.5-5.1); Sodium 139 mmol/L (136-145); Total Protein 6.7 g/dL (5.7-8.2)
[2024-07-24 05:17] LABS: Albumin 3.2 g/dL (3.2-4.8); Alkaline Phosphatase 211 U/L (46-116); Aspartate Aminotransferase 80 U/L (13-40); Carbon Dioxide 36 mmol/L (20-31); Chloride 97 mmol/L (98-107)
--- NOTE | 2024-07-24 05:19 | ED.PDOC ---
History of Present Illness HPI Comments 73 y/o F, with a history of Alzheimer's disease, asthma, chronic back pain syndrome, COPD w/3LPM home O2 use, HLD, and hypothyroidism, is BIBA for c/o generalized weakness, cough, and congestion, today. Per EMS report, patient's spouse called, this morning, after patient had a near-syncopal episode, while be ing assisted to the bathroom to be cleaned-up after having an "accident," while in bed. She was stated to have been assisted to the floor then without sustaining any injuries or trauma then and to have been dealing with aforementioned symptoms, lately, since last years' holidays. Patient was noted to have congestion and wheezing, bilaterally, on scene, with SpO2 on her home O2 of 78% and a blood pressure of 116/55, and was given 1x DuoNeb breathing treatment, with positive response SpO2 improvement to 97%, en route. Upon arrival to ED, patient had a temperature of 97.9F, pulse rate of 112, respiratory rate of 18, blood pressure of 115/65, and SpO2 of 78%. Patient has no reported chest pain, shortness of breath, dizziness, lightheadedness, fever, chills, or other associated symptoms at time of assessment. 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 Chief Complaint: Shortness of Breath Time Seen by MD: 03:40 Primary Care Provider: UNKNOWN Reviewed Notes: Nurses Notes, Wood Buffer Notes, Medications, Allergies Allergies: Coded Allergies: NO KNOWN ALLERGIES (Unverified , 06/19/14) Home Meds Active Scripts Famotidine (PEPCID TABLET) 20 Mg Tb, 20 MG PO QAM for 30 Days, #30 TAB Prov:CAROL LAWRENCE MD 03/27/24 Prednisone (Prednisone) 20 Mg Tab, 40 MG PO QAM for 10 Days, #10 MG Prov:CAROL LAWRENCE MD 03/27/24 Doxycycline Hyclate (DOXYCYCLINE HYCLATE) 100 Mg Tab, 1 TAB PO BID, #14 TAB Prov:CAROL LAWRENCE MD 03/27/24 Reported Medications Cholecalciferol (D3) 1,000 Unit Tab, 1000 UNIT PO DAILY, TAB 10/29/22 Folic Acid-Vit B2-Vit B6-Vit B (Folic Acid Xtra) Xtra Tab, 1 OR, TAB 10/29/22 Ypscyrcawdb-Ivoeztuijmxm-Zszob (Trelegy Ellipta 100-62.5-25 Mcg/INH) 1 Aer Aer, 1 AER IN DAILY, AER 10/29/22 Ferrous Sulfate (FERROUS SULFATE) 325 Mg Tb, 325 MG PO DAILY, TAB 10/29/22 Tramadol Hcl (Tramadol Hcl) 50 Mg Tab, 50 MG PO TID, TAB 10/29/22 Rosuvastatin Calcium (Rosuvastatin Calcium) 20 Mg Tab, 20 MG PO QPM, TAB 10/29/22 Ipratropium Fletcher Hfa (Atrovent Hfa) 17 Mcg Aer, 1 MG IN PRN, AER 01/21/21 Levothyroxine Sodium (Levothyroxine Sodium) 75 Mcg Tab, 75 MCG PO DAILY, TAB 01/21/21 Albuterol Sulfate (Proair Digihaler) 108 Mcg/Act Aer, 8.5 GM IN PRN, AER 10/31/20 Paroxetine (PAXIL TABLET) 20 Mg Tb, 20 MG PO QPM, TAB 10/31/20 Information Source: Emergency Med Personnel Mode of Arrival: EMS Severity: Moderate Timing: Hours Duration: Since onset Prehospital treatment: 12 Lead EKG, Breathing Tx, Project Coordinator Review of Systems: REVIEW OF SYSTEMS: No fever, no chills, or fatigue HEENT: Congestion, no sore throat, no earache, no neck pain. Cardiac: No chest pain. No palpitations. Lungs: Cough, no shortness of breath. GI: No nausea, no vomiting, no diarrhea, no constipation, no abdominal pain : No dysuria, frequency, or urgency. No hematuria. Musculoskeletal: No joint pain , no joint swelling, no extremity edema. Skin: No rash, no itching. Neuro: Generalized weakness, no headache, no dizziness. Vital Signs Vital Signs Date Time Temp Pulse Resp B/P (MAP) Pulse Ox O2 Delivery O2 Flow Rate FiO2 07/24/24 05:19 115 07/24/24 04:15 24 92 Nasal Cannula* 4 36 07/24/24 04:15 97.2 100/48 (65) 97.2 Physical Exam General: Awake, alert and oriented. No acute distress. Skin: Skin in warm, dry and intact. Appropriate color for ethnicity. Nailbeds pink with no cyanosis. HEENT: The head is normocephalic and atraumatic. Conjunctivae are clear without exudates or hemorrhage. Sclera is non-icteric. EOM are intact. No signs of nystagmus. Eyelids are normal in appearance without swelling or lesions. Oral mucosa is pink and moist Neck: The neck is supple with normal range of motion. No JVD. Cardiac: Heart rate and rhythm are normal. No murmurs, gallops, or rubs are auscultated. Respiratory: No signs of respiratory distress. Lung sounds are clear in all lobes bilaterally without rales, ronchi, or wheezes. Abdominal: Abdomen is soft, non-tender without distention. Bowel sounds are present and normoactive in all four quadrants. Extremities: Upper and lower extremities are atraumatic in appearance without deformity or edema. Neurological: The patient is confused and oriented to person only, with normal speech. Speech is clear. Follows commands. There is no facial asymmetry. Psychiatric: Appropriate mood and affect. Good judgement and insight. No visual or auditory hallucinations. Past Medical History PAST MEDICAL HISTORY: Asthma, COPD, Dementia (Alzheimer's disease), High Lipids, Thyroid Past Medical History (Other): chronic back pain syndrome Surgical History: BTL PLATINUM SMITH History: Unknown, Unobtainable Family History Family History: No family hx of Heart tracey, No family hx of HTN Social History Smoker: Cigarettes Alcohol: Other Drugs: Denies Drug Use Lives In: Home Was a procedure done? Was a procedure done?: No EKG EKG : Pulse Rate (adult): 115 Gem: Normal Cardiac Rhythm: ST Block: None Hypertrophy: None ST: Normal Differential Dx Considerations may include: URI, viral syndrome, electrolyte imbalance, dehydration, pleural effusions, PNA, UTI X-Ray, Labs, Meds, VS Vital Signs Date Time Temp Pulse Resp B/P (MAP) Pulse Ox O2 Delivery O2 Flow Rate FiO2 07/24/24 05:19 115 07/24/24 04:15 93 24 92 Nasal Cannula* 4 36 07/24/24 04:15 97.2 93 24 100/48 (65) 92 97.2 07/24/24 03:59 16 93 Nasal Cannula* 3 32 07/24/24 03:40 97.9 112 18 115/65 (82) 78 07/24/24 03:28 115 Lab Test 07/24/24 04:21 Range/Units White Blood Count 9.4 4.4-10.8 10^3/uL Red Blood Count 4.38 4.0-5.20 10^6/uL Hemoglobin 14.3 12.2-16.2 g/dL Hematocrit 42.8 36.0-46.0 % Mean Corpuscular Volume 97.7 80.0-100.0 fL Mean Corpuscular Hemoglobin 32.7 H 28.0-32.0 pg Mean Corpuscular Hemoglobin Concent 33.4 32.0-36.0 g/dL Red Cell Distribution Width 13.8 11.8-14.3 % Platelet Count 241 140-450 10^3/uL Mean Platelet Volume 7.0 6.9-10.8 fL Neutrophils (%) (Auto) 80.4 H 37.0-80.0 % Lymphocytes (%) (Auto) 7.4 L 10.0-50.0 % Monocytes (%) (Auto) 11.3 0.0-12.0 % Eosinophils (%) (Auto) 0.3 0.0-7.0 % Basophils (%) (Auto) 0.6 0.0-2.0 % Neutrophils # (Auto) 7.5 1.6-8.6 10 ^3/uL Lymphocytes # (Auto) 0.7 0.4-5.4 10 ^3/uL Monocytes # (Auto) 1.1 0-1.3 10 ^3/uL Eosinophils # (Auto) 0 0-0.8 10 ^3/uL Basophils # (Auto) 0.1 0-0.2 10 ^3/uL Nucleated Red Blood Cells 0.0 % Sodium Level 139 136-145 mmol/L Potassium Level 3.5 3.5-5.1 mmol/L Chloride Level 97 L 98-107 mmol/L Carbon Dioxide Level 36 H 20-31 mmol/L Anion Gap 6 5-15 Blood Urea Nitrogen 13 9-23 mg/dL Creatinine 0.76 0.550-1.02 mg/dL Glomerular Filtration Rate Calc 84 >90 mL/min BUN/Creatinine Ratio 17.1 10.0-20.0 Serum Glucose 89 74-106 mg/dL Lactic Acid Level 1.7 0.4-2.0 mmol/L Calcium Level 9.2 8.7-10.4 mg/dL Magnesium Level 2.3 1.6-2.6 mg/dL Total Bilirubin 0.7 0.2-1.0 mg/dL Aspartate Amino Transferase (AST) 80 H 13-40 U/L Alanine Aminotransferase (ALT) 23 7-40 U/L Alkaline Phosphatase 211 H 46-116 U/L Total Protein 6.7 5.7-8.2 g/dL Albumin 3.2 3.2-4.8 g/dL Current Medications Medications (Trade) Dose Ordered Sig/Garrett Route Start Time Stop Time Status Last Admin Albuterol (Ventolin Medneb) 2.5 mg ONCE ONCE NEB 07/24/24 04:00 07/24/24 04:01 DC 07/24/24 03:59 [place] [id number] Ph: [phone] DIAGNOSTIC IMAGING Diagnostic Imaging Report : [id number] Signed PATIENT: JALEEL XAVIER ACCT: [id number] UNIT: [id number] : 1950 LOC: ER ROOM / BED: / AGE / SEX: 73 / F ADM STATUS: REG ER SERVICE 035 ORDERING PHYSICIAN: ERIN CHAVEZ MD PROCEDURE(s): CXR1 - CHEST XRAY 1 VIEW REASON: syncope ORDER NUMBER(s): [id number], ACCESSION NUMBER(s): [id number] CHEST RADIOGRAPH Indication: syncope Technique: Single frontal view of the chest was obtained Comparison: XY CHEST PORTABLE on DOS: 03/25/24 FINDINGS: Lines and Tubes: None Lungs: Hyperinflated lungs. Diffuse bilateral prominent interstitial markings. Difficult to exclude right midlung consolidation due to overlapping right breast implant. Pleura: No effusion. No pneumothorax. Cardiomediastinal contours: Unremarkable Bones: No acute osseous abnormality. Chest wall: Bilateral calcified breast implants. IMPRESSION: 1. COPD and interstitial prominence which may reflect chronic lung disease. A superimposed consolidation in the right midlung zone is not excluded. Evaluation limited by overlapping right breast implant. ATED BY: PATRICIA REGALADO MD DICTATED DATE/TIME: 07/24/24 0430 SIGNED BY: PATRICIA REGALADO MD SIGNED DATE/TIME: 07/24/24 0430 CC: Time of 1ST Reevaluation: 04:10 Reevaluation 1ST: Unchanged Patient Education/Counseling: Other (patient has dementia) Family Education/Counseling: No Family Present Departure 1 Departure Time of Disposition: 05:28 Impression: Primary Impression: COPD (chronic obstructive pulmonary disease) Additional Impressions: Pre-syncope Generalized weakness Disposition: 09 ADMITTED INPATIENT Comments 73-year-old female with COPD exacerbation. Presyncopal episode at home, general ized weakness, worsening difficulty with ambulation. Extensive evaluation was performed in attempt to identify or rule out: (See differential diagnosis section) The following tests were ordered, and results were reviewed by me: (See diagnostic results section) The following test were independently interpreted by me: N/A I reviewed and agreed with the following test results read by other providers: N/A I reviewed the following notes from the pt's past medical encounters: (None available at this time) Additional information was gathered from interviewing the following independent historians: N/A Discussion of management or test interpretation with external physician/other qualified health healthcare market consultant: N/A Addressed [ ]one or more chronic illnesses with severe exacerbation, progression, or side effects of treatment: [ ]an acute or chronic illness that poses a threat to life or bodily function: [ ] Decision regarding hospitalization or escalation of hospital level of care: Risk and benefits of admission for further treatment of patient's condition was considered. Due to patient's current clinical condition, high risk of decline and poor outcome if discharged and need for further inpatient management and monitoring, patient will be admitted to the hospital. Drug therapy requiring intensive monitoring for toxicity: N/A Parenteral controlled substances: N/A Decision regarding elective major surgery with identified patient or procedure risk factors: N/A Decision regarding emergency major surgery: N/A Decision not to resuscitate or to de-escalate care because of poor prognosis: N/A Diagnosis or treatment significantly limited by social determinants of health: N/A Decision regarding hospitalization or escalation of hospital level of care: Risks and benefits of admission for further treatment of patient's condition was considered however due to patient's stable condition patient will be discharged to follow up closely or return to care for worsening of condition or inability to follow up. Critical Care Note Critical Care Time?: No Stability Stability form required: No Heart Score Heart Score: Heart Score Response (Comments) Value History N/A 0 EKG N/A 0 Age N/A 0 Risk Factors N/A 0 Troponin N/A 0 Total 0 I personally scribed for ERIN CHAVEZ MD ([email or web address]) on 07/24/24 at 05:19. Electronically submitted by Silvestre Espino ([email or web address]). I personally scribed for ERIN CHAVEZ MD ([email or web address]) on 07/24/24 at 05:36. Electronically submitted by Silvestre Espino ([email or web address]). ERIN CHAVEZ MD Jul 24, 2024 05:19
[2024-07-24] MEDS: SODIUM CHLORIDE 0.9% 1,000 ML IV ONE (05:42)
[2024-07-24] MEDS: methylPREDNISolone SOD SUCC 40 MG/ML VL IV ONE (05:53)
[2024-07-24] MEDS: AZITHROMYCIN 500MG/ 250ML 250 ML IV ONE (05:54)
[2024-07-24 05:59] LABS: Base Excess 10.5 mmol/L (-2.0-3.0)
[2024-07-24 07:35] LABS: Base Excess 3.1 mmol/L (-2.0-3.0)
[2024-07-24 09:07] LABS: Urine Bacteria None Seen /hpf (None Seen)
[2024-07-24 09:21] LABS: Urine Blood 2+ /uL (Negative); Urine Clarity Ex.Turbid (Clear); Urine Color Light-Orange (Yellow); Urine Protein, UAD 3+ (Negative); Urine Specific Gravity 1.027 (1.001-1.035); Urine Squamous Epithelial Cell FEW /hpf (<5); Urine Urobilinogen 4 mg/dL (Negative); Urine WBC 1928 /hpf (0 - 5); Urine WBC Clumps PRESENT /hpf (None Seen)
[2024-07-24] MEDS ORDERED: HYDROcodone-ACET 5/325MG TAB PO PRN (10:15)
[2024-07-24] MEDS ORDERED: DOCUSATE SOD 100 MG CAP PO PRN (10:15)
[2024-07-24] MEDS ORDERED: ONDANSETRON HCL 4 MG/2 ML VIAL IV PRN (10:15)
--- NOTE | 2024-07-24 10:18 | DVHHP2 ---
History of Present Illness Reason for Visit: COPD with acute exacerbation History of Present Illness The patient is a 73-year-old female with multiple past medical history including COPD, dementia, and hyperlipidemia who presented to [facility] ED with complaint of generalized weakness. As reported by , patient's symptoms progressively get worse with cough, congestion, near syncopal episode, getting worse that EMS were called. Patient was seen and evaluated in the ED, patient was noted to have congestion and wheezing, bilaterally, on scene, with SpO2 on her home O2 of 78% and a blood pressure of 116/55, and was given 1x DuoNeb breathing treatment, with positive response SpO2 improvement to 97%, laboratory data shows WBC 9.4, platelets 241, sodium 139, potassium 3.5, BUN 13, creatinine 0.76, GFR 84, glucose 89, AST 80, ALT 23, blood pressure 115/65, heart rate 89, temperature 97.9 F, O2 saturation 92% on BiPAP. Chest x-ray revealing COPD and interstitial prominence which may reflect chronic lung disease; a superimposed consolidation in the right mid lung zone is not excluded. The patient was started on IV antibiotic regimen azithromycin, please see medication orders section in the computer. On my assessment, patient denied chest pain, no headache, no dizziness, no diaphoresis, no diarrhea, no nausea, no vomiting, no fever, no chills. Patient was admitted for further evaluation and medical management. Past Medical History Asthma, COPD, Dementia (Alzheimer's disease), High Lipids, Thyroid, Chronic back pain syndrome Past Surgical History BTL Family History Reviewed, noncontributory to the management of this case. Past Social History The patient lives at home, smokes cigarettes, denies alcohol illicit drugs abuse. Review of Systems Allergies: Coded Allergies: NO KNOWN ALLERGIES (Unverified , 06/19/14) Medications Current Medications Medications Dose Ordered Sig/Garrett Route Start Time Stop Time Status Last Admin Dose Admin Azithromycin 250 ml @ 125 mls/hr DAILY IV 07/25/24 10:00 UNV Methylprednisolone Sodium Succinate 20 mg BID IV 07/24/24 22:00 UNV Famotidine 20 mg DAILY IV 07/25/24 10:00 UNV Levothyroxine Sodium 75 mcg QAM@0600 PO 07/25/24 06:00 UNV Albuterol 2.5 mg Q4HPRN PRN NEB 07/24/24 10:15 UNV Ipratropium [place] 0.5 mg Q4HPRN PRN NEB 07/24/24 10:15 UNV Sodium Chloride 10 ml Q8HR IV 07/24/24 14:00 UNV Acetaminophen/ Hydrocodone Bitart 1 tab Q4HP PRN PO 07/24/24 10:15 UNV Ondansetron HCl 4 mg Q4HP PRN IV 07/24/24 10:15 UNV Docusate Sodium 100 mg BIDPRN PRN PO 07/24/24 10:15 UNV Acetaminophen 500 mg Q6HP PRN PO 07/24/24 10:15 UNV Atorvastatin Calcium 20 mg HS PO 07/24/24 22:00 UNV Folic Acid 1 mg DAILY PO 07/25/24 10:00 UNV Exam Vital Signs Vital Signs Date Time Temp Pulse Resp B/P (MAP) Pulse Ox O2 Delivery O2 Flow Rate FiO2 07/24/24 08:05 89 07/24/24 07:20 123/62 Facial BiPAP Mask 30 07/24/24 07:00 15 89 07/24/24 06:18 6 07/24/24 04:15 97.2 97.2 Labs/Xrays Labs Test 07/24/24 08:40 07/24/24 07:24 07/24/24 05:50 07/24/24 04:21 Range/Units Urine Color Light-orange Yellow Urine Clarity Ex.turbid Clear Urine pH 6.0 5.0-9.0 Urine Specific [place] 1.027 1.001-1.035 Urine Protein 3+ H Negative Urine Ketones 2+ H Negative Urine Blood 2+ H Negative /uL Urine Nitrite Negative Negative Urine Bilirubin Negative Negative Urine Urobilinogen 4 H Negative mg/dL Urine Leukocyte Esterase 3+ Negative /uL Urine RBC 91 0 - 4 /hpf Urine WBC 1928 0 - 5 /hpf Urine WBC Clumps Present None Seen /hpf Urine Squamous Epithelial Cells Few <5 /hpf Urine Bacteria None seen None Seen /hpf Urine Glucose Normal Normal mg/dL Blood Gas Specimen Type Arterial Blood Gas Sample Site Right radial Blood Gas Patient Temperature 37.0 Arterial Blood Date Drawn [id number] Arterial Blood pH 7.307 L 7.350-7.450 Arterial Blood Partial Pressure CO2 63.6 *H 32.0-45.0 mmHg Arterial Blood Partial Pressure O2 65.0 L 83.0-108.0 mmHg Arterial Blood HCO3 31.1 H 21.0-28.0 mmol/L Arterial Blood Oxygen Saturation 90.1 L 94.0-98.0 % Arterial Blood Base Excess 3.1 H -2.0-3.0 mmol/L Arterial Blood Oxyhemoglobin 88.9 L 94.0-98.0 % Arterial Blood Carboxyhemoglobin 0.9 0.5-1.5 % Arterial Blood Methemoglobin 0.4 0.0-1.5 % Clarence Test Yes Blood Gas Total Hemoglobin 13.30 12.0-16.0 g/dL Blood Gas Set Respiration Rate 16.0 Blood Gas Modality Mask - bipap FiO2 % 30.0 Blood Gas Pressure Support 7 Blood Gas EPAP 7 Blood Gas IPAP 14 Blood Gas Critical Value Read Back Yes Blood Gas Notified Whom William chavez md Blood Gas Notified Time [id number] Blood Gas Notified By Venkatesh guzman Blood Gas Liter Flow 6.00 White Blood Count 9.4 4.4-10.8 10^3/uL Red Blood Count 4.38 4.0-5.20 10^6/uL Hemoglobin 14.3 12.2-16.2 g/dL Hematocrit 42.8 36.0-46.0 % Mean Corpuscular Volume 97.7 80.0-100.0 fL Mean Corpuscular Hemoglobin 32.7 H 28.0-32.0 pg Mean Corpuscular Hemoglobin Concent 33.4 32.0-36.0 g/dL Red Cell Distribution Width 13.8 11.8-14.3 % Platelet Count 241 140-450 10^3/uL Mean Platelet Volume 7.0 6.9-10.8 fL Neutrophils (%) (Auto) 80.4 H 37.0-80.0 % Lymphocytes (%) (Auto) 7.4 L 10.0-50.0 % Monocytes (%) (Auto) 11.3 0.0-12.0 % Eosinophils (%) (Auto) 0.3 0.0-7.0 % Basophils (%) (Auto) 0.6 0.0-2.0 % Neutrophils # (Auto) 7.5 1.6-8.6 10 ^3/uL Lymphocytes # (Auto) 0.7 0.4-5.4 10 ^3/uL Monocytes # (Auto) 1.1 0-1.3 10 ^3/uL Eosinophils # (Auto) 0 0-0.8 10 ^3/uL Basophils # (Auto) 0.1 0-0.2 10 ^3/uL Nucleated Red Blood Cells 0.0 % Sodium Level 139 136-145 mmol/L Potassium Level 3.5 3.5-5.1 mmol/L Chloride Level 97 L 98-107 mmol/L Carbon Dioxide Level 36 H 20-31 mmol/L Anion Gap 6 5-15 Blood Urea Nitrogen 13 9-23 mg/dL Creatinine 0.76 0.550-1.02 mg/dL Glomerular Filtration Rate Calc 84 >90 mL/min BUN/Creatinine Ratio 17.1 10.0-20.0 Serum Glucose 89 74-106 mg/dL Lactic Acid Level 1.7 0.4-2.0 mmol/L Calcium Level 9.2 8.7-10.4 mg/dL Magnesium Level 2.3 1.6-2.6 mg/dL Total Bilirubin 0.7 0.2-1.0 mg/dL Aspartate Amino Transferase (AST) 80 H 13-40 U/L Alanine Aminotransferase (ALT) 23 7-40 U/L Alkaline Phosphatase 211 H 46-116 U/L Total Protein 6.7 5.7-8.2 g/dL Albumin 3.2 3.2-4.8 g/dL PATIENT: JALEEL XAVIER ACCT: [id number] UNIT: [id number] : 1950 LOC: ER ROOM / BED: / AGE / SEX: 73 / F ADM STATUS: REG ER SERVICE 0351 ORDERING PHYSICIAN: ERIN CHAVEZ MD PROCEDURE(s): CXR1 - CHEST XRAY 1 VIEW REASON: syncope ORDER NUMBER(s): [id number], ACCESSION NUMBER(s): [id number] CHEST RADIOGRAPH Indication: syncope Technique: Single frontal view of the chest was obtained Comparison: XY CHEST PORTABLE on DOS: 03/25/24 FINDINGS: Lines and Tubes: None Lungs: Hyperinflated lungs. Diffuse bilateral prominent interstitial markings. Difficult to exclude right midlung consolidation due to overlapping right breast implant. Pleura: No effusion. No pneumothorax. Cardiomediastinal contours: Unremarkable Bones: No acute osseous abnormality. Chest wall: Bilateral calcified breast implants. IMPRESSION: 1. COPD and interstitial prominence which may reflect chronic lung disease. A superimposed consolidation in the right midlung zone is not excluded. Evaluation limited by overlapping right breast implant. Assessment/Plan Assessment/Plan COPD with acute exacerbation Pre-syncope Generalized weakness Pneumonia, unspecified organism Plan 1. Admit to telemetry unit 2. Breathing treatment 3. Pain control management 4. IV antibiotic management 5. Management of fluids and electrolytes 6. Consultation for hospitalist 7. Diagnostic test chest x-ray 8. DVT prophylaxis on SCDs 9. Repeat labs CBC, CMP in a.m. 10. Home medication reviewed and reconciled 11. Continue with current medical management 12. Treatment plan discussed with patient and RN. Patient verbalized understanding. Plan discussed with: Patient, Other (RN) My Orders Orders - DAHLIA RAYA DNP Procedure Category Date Status Time Azithromycin 500mg/ PHA 07/25/24 Logged 250ml (Zithromax 50 10:00 Methylprednisolone PHA 07/24/24 Logged Sod Succ (Solu Medrol 22:00 Famotidine Injection PHA 07/25/24 Logged (Pepcid Injection) 10:00 *Consult CONS 07/24/24 Transmitted / 10:05 Thyroid Stimulating LAB 07/24/24 Logged Hormone 10:05 Levothyroxine Tablet PHA 07/25/24 Logged (Synthroid Tablet) 06:00 Albuterol Medneb PHA 07/24/24 Logged (Ventolin Medneb) 10:15 Ipratropium Medneb PHA 07/24/24 Logged (Atrovent Medneb) 10:15 Allergies RICKY 07/24/24 In Process 10:05 Code Status CODE 07/24/24 Transmitted 10:05 Sodium Chloride Lock PHA 07/24/24 Logged (Saline Lock Ns) 14:00 Oxygen Per Hour RT 07/24/24 Transmitted 10:05 Hydrocodone-Acet PHA 07/24/24 Logged 5/325mg Tab ([place] 10:15 Ondansetron Hcl PHA 07/24/24 Logged (Zofran) 10:15 Docusate Sodium PHA 07/24/24 Logged Capsule (Colace 10:15 Complete Blood Count LAB 07/25/24 Verified 04:00 Comprehensive LAB 07/25/24 Verified Metabolic Panel 04:00 Cardiac DIET 07/24/24 Transmitted Diet-2gna,Lofat,Lochol Lunch Condition: Serious RICKY 07/24/24 In Process 10:05 Acetaminophen Tablet PHA 07/24/24 Logged (Tylenol Tablet) 10:15 Bedrest With Bathroom RICKY 07/24/24 In Process Privileg 10:05 Sequential RICKY 07/24/24 In Process Compression Device Atorvastatin (Lipitor) PHA 07/24/24 Logged 22:00 Folic Acid Tablet PHA 07/25/24 Logged 10:00 Problem List: (1) COPD with acute exacerbation (2) Pre-syncope (3) Generalized weakness (4) Pneumonia, unspecified organism Date of Service: Jul 24, 2024 Billing Provider: DAHLIA RAYA DNP Common Visit Codes: 01370-[id number] INP/OBS CARE (HIGH) DAHLIA RAYA DNP Jul 24, 2024 10:18
[2024-07-24] MEDS ORDERED: MORPHINE SULFATE INJ 2 MG/ml SYRG IV PRN (10:30)
[2024-07-24] MEDS ORDERED: NITROGLYCERIN 0.4 MG SL TAB SL PRN (10:30)
--- NOTE | 2024-07-24 10:33 | ECG ---
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
[2024-07-24] MEDS ORDERED: ACETAMINOPHEN 500 MG TAB or CAP PO PRN (10:45)
[2024-07-24] MEDS: SODIUM CHLOR 0.9% PF (SALINE LOCK) 10ML VIAL/SYR IV SCH (14:08)
--- NOTE | 2024-07-24 21:31 | DVHINCON2 ---
Date of service: Jul 24, 2024 Referring Physician Blake Griffiths NP Reason for Consultation Acute hypercarbic respiratory failure, COPD exacerbation, pneumonia History of Present Illness A 73-year-old woman with PMHx that includes asthma, COPD, dementia, and hyperlipidemia who presents to ED today with complaint of generalized weakness. Per , patient's symptoms progressively got worse with cough, congestion, near syncopal episode, getting worse that EMS were called. Patient was noted to have congestion and wheezing bilaterally on scene, with SpO2 on her home O2 of 78% and a blood pressure of 116/55, and was given 1x DuoNeb breathing treatment, with positive response; SpO2 improved to 97%. ED workup shows WBC 9.4, platelets 241, sodium 139, potassium 3.5, BUN 13, creatinine 0.76, GFR 84, glucose 89, AST 80, ALT 23. BP of 115/65, heart rate 89, temperature 97.9 F, O2 saturation 92% on BiPAP. Chest x-ray revealing COPD and interstitial prominence which may reflect chronic lung disease; a superimposed consolidation in the right mid lung zone is not excluded. Patient was admitted for further care and pulmonary consultation is requested for evaluation and management due to these findings. Review of Systems: 14-point review of systems negative unless otherwise noted above. Past Medical History: Asthma, COPD, Dementia (Alzheimer's disease), High Lipids, Thyroid, Chronic back pain syndrome Past Surgical History: BTL. Medications: Reviewed. Allergies: No known drug allergies. Family History: Cardiovascular disease, cancer, alcoholism. Social History: Smoker. Smokes cigarettes. No alcohol or illicit drug use. Family History: Alcoholism G8 MOTHER, Onset:Unknown G8 FATHER, Onset:Unknown Cardiovascular disease G8 MOTHER, Onset:Unknown G8 FATHER, Onset:Unknown FH: cancer Allergies: Coded Allergies: NO KNOWN ALLERGIES (Unverified , 06/19/14) Home Meds Active Scripts Famotidine (PEPCID TABLET) 20 Mg Tb, 20 MG PO QAM for 30 Days, #30 TAB Prov:CAROL LAWRENCE MD 03/27/24 Prednisone (Prednisone) 20 Mg Tab, 40 MG PO QAM for 10 Days, #10 MG Prov:CAROL LAWRENCE MD 03/27/24 Doxycycline Hyclate (DOXYCYCLINE HYCLATE) 100 Mg Tab, 1 TAB PO BID, #14 TAB Prov:CAROL LAWRENCE MD 03/27/24 Reported Medications Cholecalciferol (D3) 1,000 Unit Tab, 1000 UNIT PO DAILY, TAB 10/29/22 Folic Acid-Vit B2-Vit B6-Vit B (Folic Acid Xtra) Xtra Tab, 1 OR, TAB 10/29/22 Gnwilmwyxpb-Dzxafhmhxwye-Mmqsm (Trelegy Ellipta 100-62.5-25 Mcg/INH) 1 Aer Aer, 1 AER IN DAILY, AER 10/29/22 Ferrous Sulfate (FERROUS SULFATE) 325 Mg Tb, 325 MG PO DAILY, TAB 10/29/22 Tramadol Hcl (Tramadol Hcl) 50 Mg Tab, 50 MG PO TID, TAB 10/29/22 Rosuvastatin Calcium (Rosuvastatin Calcium) 20 Mg Tab, 20 MG PO QPM, TAB 10/29/22 Ipratropium [place] Hfa (Atrovent Hfa) 17 Mcg Aer, 1 MG IN PRN, AER 01/21/21 Levothyroxine Sodium (Levothyroxine Sodium) 75 Mcg Tab, 75 MCG PO DAILY, TAB 01/21/21 Albuterol Sulfate (Proair Digihaler) 108 Mcg/Act Aer, 8.5 GM IN PRN, AER 10/31/20 Paroxetine (PAXIL TABLET) 20 Mg Tb, 20 MG PO QPM, TAB 10/31/20 Current Medications Current Medications Medications (Trade) Dose Ordered Sig/Garrett Route PRN Reason Start Time Stop Time Status Last Admin Azithromycin 250 ml @ 125 mls/hr DAILY IV 07/25/24 10:00 Methylprednisolone Sodium Succinate (Solu Medrol) 20 mg BID IV 07/24/24 22:00 Famotidine (Pepcid Injection) 20 mg DAILY IV 07/25/24 10:00 Levothyroxine Sodium (Synthroid Tablet) 75 mcg QAM@0600 PO 07/25/24 06:00 Albuterol (Ventolin Medneb) 2.5 mg Q4HPRN PRN NEB SHORTNESS OF BREATH 07/24/24 10:15 Ipratropium [place] (Atrovent Medneb) 0.5 mg Q4HPRN PRN NEB SHORTNESS OF BREATH 07/24/24 10:15 Sodium Chloride (Saline Lock Ns) 10 ml Q8HR IV 07/24/24 14:00 07/24/24 14:08 Acetaminophen/ Hydrocodone Bitart ([place] 5/325MG Tab) 1 tab Q4HP PRN PO MODERATE PAIN (4-6 PAIN SCALE) 07/24/24 10:15 Ondansetron HCl (Zofran) 4 mg Q4HP PRN IV NAUSEA / VOMITING 07/24/24 10:15 Docusate Sodium (Colace Capsule) 100 mg BIDPRN PRN PO FOR CONSTIPATION 07/24/24 10:15 Acetaminophen (Tylenol Tablet Or Capsule) 500 mg Q6HP PRN PO PAIN SCALE 1-3 OR TEMP>100.4 07/24/24 10:45 Atorvastatin Calcium (Lipitor) 20 mg HS PO 07/24/24 22:00 Folic Acid 1 mg DAILY PO 07/25/24 10:00 Nitroglycerin (Ntrostat Sublingual) 0.4 mg Q5MINP PRN SL FOR CHEST PAIN 07/24/24 10:30 Morphine Sulfate 2 mg Q30M PRN IV FOR CHEST PAIN 07/24/24 10:30 Vital Signs Vital Signs Date Time Temp Pulse Resp B/P (MAP) Pulse Ox O2 Delivery O2 Flow Rate FiO2 07/24/24 20:43 85 130/70 95 Facial BiPAP Mask 30 07/24/24 20:00 17 07/24/24 11:22 2 07/24/24 08:00 97.6 97.6 Physical Exam Gen.: Patient lying in bed in no apparent distress. On BiPAP. Head: Normocephalic, atraumatic. Eyes: EOMI/PERRLA. Ears: Normal hearing. Normal anatomy. Neck/trachea: Trachea midline, supple. Nose: Normal external anatomy. Mouth: Moist mucous membranes. Chest: Decreased air entry bilaterally. No wheezing or rhonchi. Cardiovascular: Positive S1, positive S2. Regular rate and rhythm. Abdomen: Positive bowel sounds in all 4 quadrants. Soft, non-tender, non- distended. : Deferred. Rectal: Deferred. Skin: Warm, dry. Intact. Extremities: 2+ radial pulses bilaterally. No lower extremity edema. Neuro: Awake, alert, oriented x3. No gross motor or sensory deficits. Cranial nerves II through XII intact. Gait not assessed. Labs/Diagnostic Data Labs Test 07/24/24 08:40 07/24/24 07:24 07/24/24 05:50 07/24/24 04:21 Range/Units Urine Color Light-orange Yellow Urine Clarity Ex.turbid Clear Urine pH 6.0 5.0-9.0 Urine Specific [place] 1.027 1.001-1.035 Urine Protein 3+ H Negative Urine Ketones 2+ H Negative Urine Blood 2+ H Negative /uL Urine Nitrite Negative Negative Urine Bilirubin Negative Negative Urine Urobilinogen 4 H Negative mg/dL Urine Leukocyte Esterase 3+ Negative /uL Urine RBC 91 0 - 4 /hpf Urine WBC 1928 0 - 5 /hpf Urine WBC Clumps Present None Seen /hpf Urine Squamous Epithelial Cells Few <5 /hpf Urine Bacteria None seen None Seen /hpf Urine Glucose Normal Normal mg/dL Blood Gas Specimen Type Arterial Blood Gas Sample Site Right radial Blood Gas Patient Temperature 37.0 Arterial Blood Date Drawn [id number] Arterial Blood pH 7.307 L 7.350-7.450 Arterial Blood Partial Pressure CO2 63.6 *H 32.0-45.0 mmHg Arterial Blood Partial Pressure O2 65.0 L 83.0-108.0 mmHg Arterial Blood HCO3 31.1 H 21.0-28.0 mmol/L Arterial Blood Oxygen Saturation 90.1 L 94.0-98.0 % Arterial Blood Base Excess 3.1 H -2.0-3.0 mmol/L Arterial Blood Oxyhemoglobin 88.9 L 94.0-98.0 % Arterial Blood Carboxyhemoglobin 0.9 0.5-1.5 % Arterial Blood Methemoglobin 0.4 0.0-1.5 % Clarence Test Yes Blood Gas Total Hemoglobin 13.30 12.0-16.0 g/dL Blood Gas Set Respiration Rate 16.0 Blood Gas Modality Mask - bipap FiO2 % 30.0 Blood Gas Pressure Support 7 Blood Gas EPAP 7 Blood Gas IPAP 14 Blood Gas Critical Value Read Back Yes Blood Gas Notified Whom William gallagher md Blood Gas Notified Time [id number] Blood Gas Notified By Venkatesh guzman Blood Gas Liter Flow 6.00 White Blood Count 9.4 4.4-10.8 10^3/uL Red Blood Count 4.38 4.0-5.20 10^6/uL Hemoglobin 14.3 12.2-16.2 g/dL Hematocrit 42.8 36.0-46.0 % Mean Corpuscular Volume 97.7 80.0-100.0 fL Mean Corpuscular Hemoglobin 32.7 H 28.0-32.0 pg Mean Corpuscular Hemoglobin Concent 33.4 32.0-36.0 g/dL Red Cell Distribution Width 13.8 11.8-14.3 % Platelet Count 241 140-450 10^3/uL Mean Platelet Volume 7.0 6.9-10.8 fL Neutrophils (%) (Auto) 80.4 H 37.0-80.0 % Lymphocytes (%) (Auto) 7.4 L 10.0-50.0 % Monocytes (%) (Auto) 11.3 0.0-12.0 % Eosinophils (%) (Auto) 0.3 0.0-7.0 % Basophils (%) (Auto) 0.6 0.0-2.0 % Neutrophils # (Auto) 7.5 1.6-8.6 10 ^3/uL Lymphocytes # (Auto) 0.7 0.4-5.4 10 ^3/uL Monocytes # (Auto) 1.1 0-1.3 10 ^3/uL Eosinophils # (Auto) 0 0-0.8 10 ^3/uL Basophils # (Auto) 0.1 0-0.2 10 ^3/uL Nucleated Red Blood Cells 0.0 % Sodium Level 139 136-145 mmol/L Potassium Level 3.5 3.5-5.1 mmol/L Chloride Level 97 L 98-107 mmol/L Carbon Dioxide Level 36 H 20-31 mmol/L Anion Gap 6 5-15 Blood Urea Nitrogen 13 9-23 mg/dL Creatinine 0.76 0.550-1.02 mg/dL Glomerular Filtration Rate Calc 84 >90 mL/min BUN/Creatinine Ratio 17.1 10.0-20.0 Serum Glucose 89 74-106 mg/dL Lactic Acid Level 1.7 0.4-2.0 mmol/L Calcium Level 9.2 8.7-10.4 mg/dL Magnesium Level 2.3 1.6-2.6 mg/dL Total Bilirubin 0.7 0.2-1.0 mg/dL Aspartate Amino Transferase (AST) 80 H 13-40 U/L Alanine Aminotransferase (ALT) 23 7-40 U/L Alkaline Phosphatase 211 H 46-116 U/L Total Protein 6.7 5.7-8.2 g/dL Albumin 3.2 3.2-4.8 g/dL Thyroid Stimulating Hormone (TSH) 0.82 0.55-4.78 uIU/mL Assessment Impression: Acute hypercarbic respiratory failure AE COPD Pneumonia, likely gram negative Generalized weakness Nicotine dependence Plan: On BIPAP w/ IPAP 14, EPAP 7, FiO2 30% Titrate to keep O2 sats 88-94%. ABG notable for acidemia due to hypercarbia. Continue bronchodilators. Continue antibiotics IV steroids Monitor renal function. Monitor electrolytes. Supplement as necessary. Monitor ins and outs. Smoking cessation discussed for greater than 10 minutes GI/DVT prophylaxis. Prognosis: Poor given patient's multiple co-morbidities. Rest of plan per hospitalist and other consultants. Thank you, YELENA Griffiths, for allowing me to participate in this patient's care. Further recommendations will depend on the patient's clinical course. Please do not hesitate to contact me if you have any questions or concerns. This medical document was created using an electronic medical record system with [employer] dictation system. Although these documentations are being carefully reviewed, there may still be some phonetic and typographical changes. The errors are purely typographical, due to imperfection on the software program, and do not reflect any compromise in the patient's medical care. Plan discussed with: Other (ILIR Kaur/YELENA Griffiths/) PEEWEE BROWN MD Jul 24, 2024 21:31
[2024-07-24] MEDS: methylPREDNISolone SOD SUCC 40 MG/ML VL IV SCH (21:50)
[2024-07-24] MEDS: ATORVASTATIN 20 MG TAB PO SCH (21:51)
[2024-07-25] VITALS (8 sets, daily range): BP systolic 143; BP diastolic 78; PULSE 88–116; RESP 12–24; TEMP 98.3; O2SAT 90–97
[2024-07-25] MEDS: LEVOTHYROXINE SODIUM 25 MCG TAB PO SCH (06:07)
[2024-07-25 06:10] LABS: Basophils # (auto) 0 10 ^3/uL (0-0.2); Basophils % (auto) 0.2 % (0.0-2.0); Eosinophils # (auto) 0 10 ^3/uL (0-0.8); Eosinophils % (auto) 0.1 % (0.0-7.0); Hematocrit 41.2 % (36.0-46.0); Hemoglobin 13.6 g/dL (12.2-16.2); Lymphocytes # (auto) 0.4 10 ^3/uL (0.4-5.4); Lymphocytes % (auto) 5.6 % (10.0-50.0); Mean Corpuscular Hemoglobin 31.7 pg (28.0-32.0); Mean Corpuscular Volume 96.1 fL (80.0-100.0); Monocytes # (auto) 0.4 10 ^3/uL (0-1.3); Monocytes % (auto) 5.8 % (0.0-12.0); Neutrophils # (auto) 6.7 10 ^3/uL (1.6-8.6); Neutrophils % (auto) 88.3 % (37.0-80.0); Nucleated Red Blood Cells % 0.2 %; Platelet Count (auto) 306 10^3/uL (140-450); Red Blood Cells 4.29 10^6/uL (4.0-5.20); White Blood Cell 7.6 10^3/uL (4.4-10.8)
[2024-07-25] MEDS: IPRATROPIUM BROM 0.5 MG/2.5ML INH SOL NEB PRN (06:12)
[2024-07-25] MEDS: ALBUTEROL SULF 2.5 MG/0.5ML(0.5%) NEB SOLN NEB PRN (06:12)
[2024-07-25 06:27] LABS: Alanine Aminotransferase 36 U/L (7-40); Anion Gap 4 (5-15); BUN/Creatinine Ratio 20.7 (10.0-20.0); Blood Urea Nitrogen 19 mg/dL (9-23); Calcium 9.2 mg/dL (8.7-10.4); Chloride 99 mmol/L (98-107); Potassium 3.8 mmol/L (3.5-5.1); Sodium 139 mmol/L (136-145)
[2024-07-25 06:28] LABS: Bilirubin, Total 0.7 mg/dL (0.2-1.0)
[2024-07-25 06:29] LABS: Total Protein 6.7 g/dL (5.7-8.2)
[2024-07-25 06:30] LABS: Albumin 3.1 g/dL (3.2-4.8); Alkaline Phosphatase 220 U/L (46-116); Aspartate Aminotransferase 138 U/L (13-40); Carbon Dioxide 36 mmol/L (20-31); Glucose 117 mg/dL (74-106)
[2024-07-25 08:09] LABS: Base Excess 9.6 mmol/L (-2.0-3.0)
[2024-07-25] MEDS: FOLIC ACID 1 MG TAB PO SCH (10:11)
[2024-07-25] MEDS: FAMOTIDINE (10MG/ML) 2ML VL IV SCH (10:11)
[2024-07-25] MEDS: AZITHROMYCIN 500MG/ 250ML 250 ML IV SCH (10:11)
[2024-07-25] MEDS: FUROSEMIDE 20 MG/2 ML VIAL IV ONE (16:06)
--- NOTE | 2024-07-25 17:34 | DVHPN2 ---
Subjective Seen and examined at bedside, Cont Zithromax. Add Rocephin for UTI. Repeat ECHO needed. Changes from previous H/P or p: No Changes Objective Vitals Vital Signs Date Time Temp Pulse Resp B/P (MAP) Pulse Ox O2 Delivery O2 Flow Rate FiO2 07/25/24 16:07 110 18 134/80 (98) 96 07/25/24 12:35 98.2 98.2 07/25/24 08:17 Nasal Cannula* 2 28 Intake/Output Intake and Output 07/25/24 07:00 Intake Total 1250 ml Output Total 500 ml Balance 750 ml Intake IV Total 1250 ml Output Urine Total 500 ml General Appearance: Alert, Oriented X3, Cooperative HEENT: Atraumatic Lungs: Other (Diminished) Cardiovascular: Other (Tachycardic) Abdomen: Normal bowel sounds, Soft Psych/Mental Status: Mental status NL Medications Current Medications Medications Dose Ordered Sig/Garrett Route Start Time Stop Time Status Last Admin Dose Admin Azithromycin 250 ml @ 125 mls/hr DAILY IV 07/25/24 10:00 07/25/24 10:11 125 MLS/HR Methylprednisolone Sodium Succinate 20 mg BID IV 07/24/24 22:00 07/25/24 10:11 20 MG Famotidine 20 mg DAILY IV 07/25/24 10:00 07/25/24 10:11 20 MG Levothyroxine Sodium 75 mcg QAM@0600 PO 07/25/24 06:00 07/25/24 06:07 75 MCG Albuterol 2.5 mg Q4HPRN PRN NEB 07/24/24 10:15 07/25/24 06:12 2.5 MG Ipratropium [place] 0.5 mg Q4HPRN PRN NEB 07/24/24 10:15 07/25/24 06:12 0.5 MG Sodium Chloride 10 ml Q8HR IV 07/24/24 14:00 07/25/24 10:12 10 ML Acetaminophen/ Hydrocodone Bitart 1 tab Q4HP PRN PO 07/24/24 10:15 Ondansetron HCl 4 mg Q4HP PRN IV 07/24/24 10:15 Docusate Sodium 100 mg BIDPRN PRN PO 07/24/24 10:15 Acetaminophen 500 mg Q6HP PRN PO 07/24/24 10:45 Atorvastatin Calcium 20 mg HS PO 07/24/24 22:00 Folic Acid 1 mg DAILY PO 07/25/24 10:00 07/25/24 10:11 1 MG Nitroglycerin 0.4 mg Q5MINP PRN SL 07/24/24 10:30 Morphine Sulfate 2 mg Q30M PRN IV 07/24/24 10:30 Furosemide 20 mg BIDD IV 07/25/24 18:00 Laboratory Results Laboratory Tests 07/25/24 05:18 Chemistry Test 07/25/24 05:18 Albumin 3.1 g/dL (3.2-4.8) L Calcium Level 9.2 mg/dL (8.7-10.4) Total Protein 6.7 g/dL (5.7-8.2) LFT Test 07/25/24 05:18 Alanine Aminotransferase (ALT) 36 U/L (7-40) Alkaline Phosphatase 220 U/L (46-116) H Aspartate Amino Transferase (AST) 138 U/L (13-40) H Total Bilirubin 0.7 mg/dL (0.2-1.0) Urinalysis Test 07/24/24 08:40 Urine Color Light-orange (Yellow) Urine Clarity Ex.turbid (Clear) Urine pH 6.0 (5.0-9.0) Urine Specific [place] 1.027 (1.001-1.035) Urine Protein 3+ (Negative) H Urine Ketones 2+ (Negative) H Urine Blood 2+ /uL (Negative) H Urine Nitrite Negative (Negative) Urine Bilirubin Negative (Negative) Urine Urobilinogen 4 mg/dL (Negative) H Urine Leukocyte Esterase 3+ /uL (Negative) Urine RBC 91 /hpf (0 - 4) Urine WBC 1928 /hpf (0 - 5) Urine WBC Clumps Present /hpf (None Seen) Urine Squamous Epithelial Cells Few /hpf (<5) Urine Bacteria None seen /hpf (None Seen) Urine Glucose Normal mg/dL (Normal) Blood Gas Results Test 07/25/24 08:02 Arterial Blood pH 7.445 (7.350-7.450) FiO2 % 30.0 Assessment/Plan Assessment/Plan # COPD Exacerbation - Solumedrol IV - Bronchodilators - Zithromax # Acute Cystitis - Rocephin # Pulm HTN - Monitor for fluid overload # Severe Emphysema # Cachexia Plan discussed with: Patient My Orders Orders - CAROL LAWRENCE MD Procedure Category Date Status Time Furosemide Injection PHA 07/25/24 In Process (Lasix Injection) 18:00 Electrocardigram EKG 07/25/24 Logged 16:56 Echo 2d Mode Cardiac US 07/25/24 Logged DOP 16:56 Azithromycin Tablet PHA 07/26/24 In Process (Zithromax Tablet) 10:00 Levalbuterol Hcl PHA 07/25/24 In Process (Xopenex Medneb) 18:00 Basic Metabolic Panel LAB 07/26/24 Verified 04:00 B-Type Natriuretic LAB 07/26/24 Verified Peptide 04:00 Ceftriaxone Ivpb PHA 07/25/24 Transmitted Rocephin 17:30 Ceftriaxone Ivpb PHA 07/26/24 Transmitted Rocephin 09:00 Date of Service: Jul 25, 2024 Billing Provider: CAROL LAWRENCE MD Common Visit Codes: [id number] INP/OBS CARE(HIGH) CAROL LAWRENCE MD Jul 25, 2024 17:34
[2024-07-25] MEDS: FUROSEMIDE 20 MG/2 ML VIAL IV SCH (17:58)
[2024-07-25] MEDS: cefTRIAXone 2GM/50ML D5W 50 ML IV ONE (18:14)
[2024-07-25] MEDS: DIGOXIN (250MCG/ML) 2 ML AMPULE IV ONE (18:14)
[2024-07-25] MEDS: LEVALBUTEROL HCL 1.25 MG/3 ML NEB NEB SCH (19:13)
[2024-07-26] VITALS (21 sets, daily range): BP systolic 119–134; BP diastolic 57–94; PULSE 82–138; RESP 16–20; TEMP 96–98.6; O2SAT 89–100
[2024-07-26 02:17] LABS: Base Excess 11.4 mmol/L (-2.0-3.0)
[2024-07-26] MEDS: AZITHROMYCIN 250 MG TAB PO SCH (09:24)
[2024-07-26] MEDS: cefTRIAXone 1GM/50ML D5W 50 ML IV SCH (09:24)
[2024-07-26 10:53] LABS: Calcium 9.9 mg/dL (8.7-10.4)
[2024-07-26 10:59] LABS: BUN/Creatinine Ratio 21.9 (10.0-20.0); Blood Urea Nitrogen 21 mg/dL (9-23); Glucose 106 mg/dL (74-106)
[2024-07-26 11:00] LABS: Anion Gap 6.99999 (5-15); Chloride 89 mmol/L (98-107); Potassium 2.8 mmol/L (3.5-5.1); Sodium 136 mmol/L (136-145)
[2024-07-26 11:02] LABS: Carbon Dioxide > 40 mmol/L (20-31)
--- NOTE | 2024-07-26 12:38 | ECG ---
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
[2024-07-26] MEDS: POTASSIUM CHL 20 Meq TABLET PO ONE (13:57)
--- NOTE | 2024-07-26 16:44 | DVHPN2 ---
Subjective Seen and examined at bedside, very confused, daughter at bedside. Family wishing to be DC'd home with [facility] hospice. Changes from previous H/P or p: Changes Neurological: Numbness, Confusion Objective Vitals Vital Signs Date Time Temp Pulse Resp B/P (MAP) Pulse Ox O2 Delivery O2 Flow Rate FiO2 07/26/24 12:59 98.6 96 18 119/57 (77) 95 98.6 07/26/24 12:33 Oxymizer 6 N/A Intake/Output Intake and Output 07/26/24 07:00 Intake Total 900 ml Output Total 2100 ml Balance -1200 ml Intake Oral 600 ml IV Total 300 ml Output Urine Total 2100 ml General Appearance: mild distress, Other (cachectic) HEENT: Atraumatic Lungs: Other (Diminished) Cardiovascular: Other (Tachycardic) Abdomen: Normal bowel sounds, Soft Psych/Mental Status: Other (confused) Medications Current Medications Medications Dose Ordered Sig/Garrett Route Start Time Stop Time Status Last Admin Dose Admin Methylprednisolone Sodium Succinate 20 mg BID IV 07/24/24 22:00 07/26/24 09:23 20 MG Famotidine 20 mg DAILY IV 07/25/24 10:00 07/26/24 09:23 20 MG Levothyroxine Sodium 75 mcg QAM@0600 PO 07/25/24 06:00 07/26/24 06:12 75 MCG Albuterol 2.5 mg Q4HPRN PRN NEB 07/24/24 10:15 07/25/24 06:12 2.5 MG Ipratropium [place] 0.5 mg Q4HPRN PRN NEB 07/24/24 10:15 07/26/24 12:33 0.5 MG Sodium Chloride 10 ml Q8HR IV 07/24/24 14:00 07/26/24 14:10 10 ML Acetaminophen/ Hydrocodone Bitart 1 tab Q4HP PRN PO 07/24/24 10:15 Ondansetron HCl 4 mg Q4HP PRN IV 07/24/24 10:15 Docusate Sodium 100 mg BIDPRN PRN PO 07/24/24 10:15 Acetaminophen 500 mg Q6HP PRN PO 07/24/24 10:45 Atorvastatin Calcium 20 mg HS PO 07/24/24 22:00 07/25/24 22:06 20 MG Folic Acid 1 mg DAILY PO 07/25/24 10:00 07/26/24 09:24 1 MG Nitroglycerin 0.4 mg Q5MINP PRN SL 07/24/24 10:30 Morphine Sulfate 2 mg Q30M PRN IV 07/24/24 10:30 Furosemide 20 mg BIDD IV 07/25/24 18:00 07/26/24 06:05 20 MG Azithromycin 250 mg DAILY PO 07/26/24 10:00 07/26/24 09:24 250 MG Levalbuterol HCl 1.25 mg Q6HR NEB 07/25/24 18:00 07/26/24 12:33 1.25 MG Ceftriaxone Sodium 50 ml @ 100 mls/hr DAILY@09 IV 07/26/24 09:00 07/26/24 09:24 100 MLS/HR Enoxaparin Sodium 30 mg DAILY SC 07/27/24 10:00 Laboratory Results Laboratory Tests 07/25/24 05:18 07/26/24 09:55 Chemistry Test 07/26/24 09:55 Calcium Level 9.9 mg/dL (8.7-10.4) Cardiac Markers Test 07/26/24 09:55 B-Type Natriuretic Peptide 258.32 pg/mL (0-100) Urinalysis Test 07/24/24 08:40 Urine Color Light-orange (Yellow) Urine Clarity Ex.turbid (Clear) Urine pH 6.0 (5.0-9.0) Urine Specific [place] 1.027 (1.001-1.035) Urine Protein 3+ (Negative) H Urine Ketones 2+ (Negative) H Urine Blood 2+ /uL (Negative) H Urine Nitrite Negative (Negative) Urine Bilirubin Negative (Negative) Urine Urobilinogen 4 mg/dL (Negative) H Urine Leukocyte Esterase 3+ /uL (Negative) Urine RBC 91 /hpf (0 - 4) Urine WBC 1928 /hpf (0 - 5) Urine WBC Clumps Present /hpf (None Seen) Urine Squamous Epithelial Cells Few /hpf (<5) Urine Bacteria None seen /hpf (None Seen) Urine Glucose Normal mg/dL (Normal) Blood Gas Results Test 07/26/24 01:57 Arterial Blood pH 7.472 (7.350-7.450) FiO2 % 40.0 Microbiology Microbiology Date/Time Source Procedure Growth Status 07/25/24 18:00 Voided Urine Urine Culture - Preliminary Resulted Assessment/Plan Assessment/Plan # COPD Exacerbation - Solumedrol IV - Bronchodilators - Zithromax # Acute Cystitis - Rocephin # Pulm HTN - Monitor for fluid overload # Severe Emphysema # Cachexia # goals of care- DNR/DNI Plan discussed with: Daughter My Orders Orders - CAROL LAWRENCE MD Procedure Category Date Status Time Azithromycin Tablet PHA 07/26/24 In Process (Zithromax Tablet) 10:00 Levalbuterol Hcl PHA 07/25/24 In Process (Xopenex Medneb) 18:00 Ceftriaxone 1gm/50ml PHA 07/26/24 In Process D5w (Rocephin) 09:00 Urine Bacterial LEANNE 07/25/24 In Process Culture 17:31 Basic Metabolic Panel LAB 07/27/24 Verified 04:00 Magnesium LAB 07/27/24 Verified 04:00 Enoxaparin Sodium PHA 07/27/24 In Process (Lovenox) 10:00 * Motor Analyst CONS 07/26/24 Verified Consult Date of Service: Jul 26, 2024 Billing Provider: CAROL LAWRENCE MD Common Visit Codes: [id number] INP/OBS CARE(HIGH) Secondary Visit Codes: [id number] CARE PLAN 30 MINUTES CAROL LAWRENCE MD Jul 26, 2024 16:44
[2024-07-27] VITALS (10 sets, daily range): BP systolic 119–135; BP diastolic 63; PULSE 88–103; RESP 16–19; TEMP 97.8; O2SAT 93–98
[2024-07-27 07:59] LABS: Sodium 139 mmol/L (136-145)
[2024-07-27 08:05] LABS: BUN/Creatinine Ratio 34.1 (10.0-20.0)
[2024-07-27 08:06] LABS: Chloride 88 mmol/L (98-107); Magnesium 2.4 mg/dL (1.6-2.6)
[2024-07-27 08:07] LABS: Anion Gap 10.99999 (5-15); Blood Urea Nitrogen 31 mg/dL (9-23); Glucose 139 mg/dL (74-106)
[2024-07-27 08:08] LABS: Carbon Dioxide > 40 mmol/L (20-31)
--- NOTE | 2024-07-27 08:17 | DVHSR ---
APPROVED REPORT EXAM: Two-dimensional and M-mode echocardiogram with Doppler and color Doppler. Blood Pressure: 125/71 mmHg INDICATION Atrial Fibrillation RISK FACTORS Height: 5'7", Weight: 103 DIMENSIONS LVDd (3.8-5.7cm)LA (2D)3.7 (1.9-4.0cm)Aortic Root (2.0-3.7cm) EF (%) (55-70%)Rt. Atrium3.6 (1.9-4.0cm)Asc. Aorta cm Mitral Valve MitralMitral Stenosis E/A ratio0.02D MVAcm2 Other Information Quality : Technically LimitedRhythm : Technically limited study due to body habitus. Conclusion The study is very technically limited. The left ventricle is of normal size and systolic function. Ejection fraction is estimated at 60%. The right ventricle appears to be of normal size and systolic function. Aortic valve leaflets appear to be mildly calcified. There is no significant mitral or tricuspid regurgitation. The left atrium is mildly dilated in size. Right atrium is of normal size. IVC is of normal size and collapses nor ana with inspiration. There is moderate-sized pericardial effusion with organized material mostly around the right ventricular free wall. No evidence of tamponade physiology.
[2024-07-27] MEDS: ENOXAPARIN SOD 30 MG/0.3 ML SYRINGE SC SCH (09:33)
--- NOTE | 2024-07-27 14:43 | DVHDS2 ---
Discharge Summary Date of Admission Jul 24, 2024 at 10:17 Date of Discharge: Jul 27, 2024 Labs/Diagnostic Data: Laboratory Results Test 07/27/24 06:52 07/26/24 09:55 07/26/24 01:57 07/25/24 08:02 Sodium Level 139 mmol/L (136-145) Potassium Level 3.0 mmol/L (3.5-5.1) Chloride Level 88 mmol/L (98-107) Carbon Dioxide Level > 40 mmol/L (20-31) Anion Gap 10.75109 (5-15) Blood Urea Nitrogen 31 mg/dL (9-23) Creatinine 0.91 mg/dL (0.550-1.02) Glomerular Filtration Rate Calc 67 mL/min (>90) BUN/Creatinine Ratio 34.1 (10.0-20.0) Serum Glucose 139 mg/dL (74-106) Calcium Level 10.0 mg/dL (8.7-10.4) Magnesium Level 2.4 mg/dL (1.6-2.6) B-Type Natriuretic Peptide 258.32 pg/mL (0-100) Blood Gas Specimen Type Arterial Blood Gas Sample Site Right brachial Blood Gas Patient Temperature 37.0 Arterial Blood Date Drawn [id number] Arterial Blood pH 7.472 (7.350-7.450) Arterial Blood Partial Pressure CO2 51.8 mmHg (32.0-45.0) Arterial Blood Partial Pressure O2 64.5 mmHg (83.0-108.0) Arterial Blood HCO3 37.0 mmol/L (21.0-28.0) Arterial Blood Oxygen Saturation 91.8 % (94.0-98.0) Arterial Blood Base Excess 11.4 mmol/L (-2.0-3.0) Arterial Blood Oxyhemoglobin 90.9 % (94.0-98.0) Arterial Blood Carboxyhemoglobin 0.5 % (0.5-1.5) Arterial Blood Methemoglobin 0.5 % (0.0-1.5) Clarence Test Yes Blood Gas Total Hemoglobin 13.90 g/dL (12.0-16.0) Blood Gas Set Respiration Rate 16.0 Blood Gas Modality Mask - bipap Blood Gas Spontaneous Rate 20 FiO2 % 40.0 Blood Gas Spontaneous Tidal Volume 400 Blood Gas EPAP 7 Blood Gas IPAP 14 Blood Gas Liter Flow 2.50 Test 07/25/24 05:18 07/24/24 08:40 07/24/24 07:24 07/24/24 04:21 White Blood Count 7.6 10^3/uL (4.4-10.8) Red Blood Count 4.29 10^6/uL (4.0-5.20) Hemoglobin 13.6 g/dL (12.2-16.2) Hematocrit 41.2 % (36.0-46.0) Mean Corpuscular Volume 96.1 fL (80.0-100.0) Mean Corpuscular Hemoglobin 31.7 pg (28.0-32.0) Mean Corpuscular Hemoglobin Concent 33.0 g/dL (32.0-36.0) Red Cell Distribution Width 14.0 % (11.8-14.3) Platelet Count 306 10^3/uL (140-450) Mean Platelet Volume 7.2 fL (6.9-10.8) Neutrophils (%) (Auto) 88.3 % (37.0-80.0) Lymphocytes (%) (Auto) 5.6 % (10.0-50.0) Monocytes (%) (Auto) 5.8 % (0.0-12.0) Eosinophils (%) (Auto) 0.1 % (0.0-7.0) Basophils (%) (Auto) 0.2 % (0.0-2.0) Neutrophils # (Auto) 6.7 10 ^3/uL (1.6-8.6) Lymphocytes # (Auto) 0.4 10 ^3/uL (0.4-5.4) Monocytes # (Auto) 0.4 10 ^3/uL (0-1.3) Eosinophils # (Auto) 0 10 ^3/uL (0-0.8) Basophils # (Auto) 0 10 ^3/uL (0-0.2) Nucleated Red Blood Cells 0.2 % Total Bilirubin 0.7 mg/dL (0.2-1.0) Aspartate Amino Transferase (AST) 138 U/L (13-40) Alanine Aminotransferase (ALT) 36 U/L (7-40) Alkaline Phosphatase 220 U/L (46-116) Total Protein 6.7 g/dL (5.7-8.2) Albumin 3.1 g/dL (3.2-4.8) Urine Color Light-orange (Yellow) Urine Clarity Ex.turbid (Clear) Urine pH 6.0 (5.0-9.0) Urine Specific [place] 1.027 (1.001-1.035) Urine Protein 3+ (Negative) Urine Ketones 2+ (Negative) Urine Blood 2+ /uL (Negative) Urine Nitrite Negative (Negative) Urine Bilirubin Negative (Negative) Urine Urobilinogen 4 mg/dL (Negative) Urine Leukocyte Esterase 3+ /uL (Negative) Urine RBC 91 /hpf (0 - 4) Urine WBC 1928 /hpf (0 - 5) Urine WBC Clumps Present /hpf (None Seen) Urine Squamous Epithelial Cells Few /hpf (<5) Urine Bacteria None seen /hpf (None Seen) Urine Glucose Normal mg/dL (Normal) Blood Gas Pressure Support 7 Blood Gas Critical Value Read Back Yes Blood Gas Notified Whom William gallagher md Blood Gas Notified Time [id number] Blood Gas Notified By Venkatesh guzman Lactic Acid Level 1.7 mmol/L (0.4-2.0) Thyroid Stimulating Hormone (TSH) 0.82 uIU/mL (0.55-4.78) Other Laboratory Tests 07/27/24 06:52 07/25/24 05:18 Brief Hx & Hospital Course: Patient is with end stage COPD on 4L home oxygen. Per family patient has stopped eating recently. Patient will be discharged with home hospice per family wishes (Spouse and DTR). Condition at Discharge: Poor Final Diagnosis/Problems List # COPD Exacerbation - Solumedrol IV - Bronchodilators - Zithromax # Acute Cystitis - Rocephin # Pulm HTN - Monitor for fluid overload # Severe Emphysema # Cachexia # goals of care- DNR/DNI Discharge Disposition: Hospice - Home Discharge Instruct/Medications Diet: Regular Discharge Statement: "Patient was advised to return to the ER or call 911 if any headaches, dizziness, shortness of breath, chest pain, abdominal pain, bleeding, fevers, or worsening of medical condition. Patient was counseled about treatment plan, medications, possible side effects, patientverbalized understanding. All questions were answered to the best of my ability. This discharge took greater then 30 minutes in planning, reviewing documentation, counseling the patient, and discussing with other team members." ASSESSMENT ASSESSMENT Assessment Date of Service: Jul 27, 2024 Billing Provider: CAROL LAWRENCE MD Common Visit Codes: 50833-KNQ/OBS DISCH DAY >30min CAROL LAWRENCE MD Jul 27, 2024 14:43
== END 2024-07-27 18:00 | disposition hospice, home (50) | DRG 291 ==
LOC: ER 03:21 → EDSEX 03:21 → EDBD 03:21 → TELE 10:17 → TELE-WESTW 07-25 21:57
PROVIDERS: ADMIT Internal Medicine; ATTEND Internal Medicine
PROC: 5A09357 Assistance with Respiratory Ventilation, Less than 24 Consecutive Hours, Continuous Positive Airway Pressure (ICD-10-PCS; principal; 2024-07-24)
PROC: 5A09357 Assistance with Respiratory Ventilation, Less than 24 Consecutive Hours, Continuous Positive Airway Pressure (ICD-10-PCS; 2024-07-26)
DX: I50.31 Acute diastolic (congestive) heart failure (principal); J96.01 Acute respiratory failure with hypoxia; J96.02 Acute respiratory failure with hypercapnia; J44.1 Chronic obstructive pulmonary disease with (acute) exacerbation; R64 Cachexia; N30.00 Acute cystitis without hematuria; Z68.1 Body mass index [BMI] 19.9 or less, adult; J44.0 Chronic obstructive pulmonary disease with (acute) lower respiratory infection; E03.9 Hypothyroidism, unspecified; Z66 Do not resuscitate; E78.5 Hyperlipidemia, unspecified; G30.9 Alzheimer's disease, unspecified; F02.80 Dementia in other diseases classified elsewhere, unspecified severity, without behavioral disturbance, psychotic disturbance, mood disturbance, and anxiety; G89.4 Chronic pain syndrome; I27.20 Pulmonary hypertension, unspecified; J43.9 Emphysema, unspecified; F17.210 Nicotine dependence, cigarettes, uncomplicated; M54.9 Dorsalgia, unspecified; Z99.81 Dependence on supplemental oxygen; Z82.49 Family history of ischemic heart disease and other diseases of the circulatory system; Z79.899 Other long term (current) drug therapy
CPT/HCPCS: 36415; 36600; 71045; 80048; 80053; 81001; 82805; 83605; 83735; 83880; 84443; 85025; 87086; 87088; 87186; 93005; 93306; 94640; 94660; 96365; 96375; G0378; J3490